=== PATIENT | female | born 1955 | race African-American/Black ===

== ENCOUNTER 2016-05-24 17:07 | Inpatient (IN) | payer OTHER ==
--- NOTE | 2016-05-24 17:11 | PDOC ---
History of Present Illness - History of Present Illness Initial Comments: 05/24/16 18:01 The patient is a 61 year old female with a past medical hx of HTN, diabetes who presents to the ED via EMS complaining of generalized weakness for the past hour. The patient reports she was on her way to the eye doctor when she felt very weak. She states she got out of the taxi and was at the incorrect address. She continued to feel weak and did not have money for a taxi so she reports she had someone call an ambulance for her. The patient reports she has never felt like this in the past. She has not eaten at all today and did not take any of her medications today. The patient denies any fever, chills, dysuria, SOB, cough The patient denies any nausea, vomiting, diarrhea, abdominal pain <Rachel Zavala - Last Filed: 05/24/16 21:00> <Karolyn Addison - Last Filed: 05/24/16 23:58> - General Stated Complaint: WEAKNESS/LETHARGY Past History <Rachel Zavala - Last Filed: 05/24/16 21:00> - Past Medical History Diabetes: Yes HTN: Yes - Psycho/Social/Smoking Cessation Hx Suicidal Ideation: No Smoking History: Never smoked Hx Alcohol Use: No Drug/Substance Use Hx: No Substance Use Type: None <Karolyn Addison - Last Filed: 05/24/16 23:58> - Past Medical History Allergies/Adverse Reactions: Allergies Allergy/AdvReac Type Severity Reaction Status Date / Time No Known Allergies Allergy Verified 05/24/16 17:16 Home Medications: Ambulatory Orders Aspirin [ASA -] 81 mg PO DAILY #20 tab.chew 01/14/16 Amlodipine Besylate [Norvasc -] 10 mg PO DAILY 05/24/16 Aspirin [ASA -] 81 mg PO DAILY 05/24/16 Atorvastatin Ca [Lipitor] 80 mg PO HS 05/24/16 Cephalexin Monohydrate [Keflex -] 500 mg PO Q6H #20 capsule 05/24/16 Gabapentin [Neurontin] 300 mg PO HS 05/24/16 Glipizide 5 mg PO DAILY 05/24/16 Insulin Glargine,Hum.rec.anlog [Lantus (nf)] 20 units SQ HS 05/24/16 Lisinopril [Prinivil] 10 mg PO DAILY 05/24/16 Metoprolol Succinate [Toprol Xl] 75 mg PO DAILY 05/24/16 Review of Systems - Review of Systems Able to Perform ROS?: Yes Comments:: 05/24/16 17:32 CONSTITUTIONAL: +Generalized weakness. Absent: fever, chills, diaphoresis, malaise, loss of appetite HEENT: Absent: rhinorrhea, nasal congestion, throat pain, throat swelling, difficulty swallowing, mouth swelling, ear pain, eye pain, visual Changes CARDIOVASCULAR: Absent: chest pain, syncope, palpitations, irregular heart rate, lightheadedness , peripheral edema RESPIRATORY: Absent: cough, shortness of breath, dyspnea with exertion, orthopnea, wheezing, stridor, hemoptysis GASTROINTESTINAL: Absent: abdominal pain, abdominal distension, nausea, vomiting, diarrhea, constipation, melena, hematochezia GENITOURINARY: Absent: dysuria, frequency, urgency, hesitancy, hematuria, flank pain, genital pain MUSCULOSKELETAL: Absent: joint swelling SKIN: Absent: rash, itching, pallor NEUROLOGIC: Absent: headache, focal weakness or paresthesias, dizziness, unsteady gait, seizure, mental status changes, bladder or bowel incontinence PSYCHIATRIC: Absent: anxiety, depression, suicidal or homicidal ideation, hallucinations. <Rachel Zavala - Last Filed: 05/24/16 21:00> *Physical Exam - Vital Signs Last Vital Signs Temp Pulse Resp BP Pulse Ox 98.1 F 81 18 163/82 99 05/24/16 17:16 05/24/16 17:16 05/24/16 17:16 05/24/16 17:16 05/24/16 17:16 - Physical Exam Comments: 05/24/16 17:33 GENERAL: +Appears lethargic. Well developed, well nourished. Awake and alert. No acute distress. HEENT: Normocephalic, atraumatic. PERRLA, EOMI. No conjunctival pallor. Sclera are non- icteric. Moist mucous membranes. Oropharynx is clear. NECK: Supple. Full ROM. No JVD. Carotid pulses 2+ and symmetric, without bruits. No thyromegaly. No lymphadenopathy. CARDIOVASCULAR: Regular rate and rhythm. No murmurs, rubs, or gallops. Distal pulses are 2+ and symmetric. PULMONARY: No evidence of respiratory distress. Lungs clear to auscultation bilaterally. No wheezing, rales or rhonchi. ABDOMINAL: Soft. Non-tender. Non-distended. No rebound or guarding. No organomegaly. Normoactive bowel sounds. MUSCULOSKELETAL Normal range of motion at all joints. No bony deformities or tenderness. No CVA tenderness. EXTREMITIES: +Chronic venous stasis, bilateral 1+ pitting edema. No cyanosis. No clubbing. No calf tenderness. SKIN: Warm and dry. Normal capillary refill. No rashes. No jaundice. NEUROLOGICAL: Alert, awake, appropriate. Lethargic when responding to questions. Cranial nerves 2-12 intact. No deficits to light touch and temperature in face, upper extremities and lower extremities. PSYCHIATRIC: Cooperative. Good eye contact. Appropriate mood and affect. <Rachel Zavala - Last Filed: 05/24/16 21:00> Heart Score/ECG Review - ECG Impressions Comment:: 05/24/16 21:00 NSR at a rate of 79 bpm OK interval 120 ms QRS duration 82 ms <Rachel Zavala - Last Filed: 05/24/16 21:00> ED Treatment Course - LABORATORY CBC & Chemistry Diagram: 05/24/16 17:35 05/24/16 17:35 - RADIOLOGY Radiograph Interpretation: 05/24/16 18:57 Chest X-Ray Single view AP portable chest Headache with altered mental status Comparison studies: None Trachea midline with normal heart size and no mediastinal widening No infiltrate, mass or effusion Impression: No infiltrate or edema in the lungs-no acute changes noted. Reported By: Leonard Saleh MD 05/24/16 1849 05/24/16 19:57 CT brain without contrast Clinical history: Lethargy Comparison studies: None Normal images on bone windows axial imaging through the paranasal sinuses and mastoids including the calvarium with no bony lesion Normal region of orbits and skull base noted Midline ventricular system with no shift or hydrocephalus No sulcal effacement or increased intracranial pressure Midline fourth ventricle with hypodensity in the periventricular white matter consistent with atherosclerotic small vessel change No sulcal effacement or increased intracranial pressure with no subdural or subarachnoid hemorrhage Focal area of hypodensity noted in the right anterior limb internal capsule consistent with a small area of hypodense infarction. Finding may be chronic. Similar area of hypodensity noted left anterior limb internal capsule. Findings likely outbound telemarketing representative of age indeterminate/likely chronic lacunar infarcts. Impression: CT imaging completed with no evidence of mass, hemorrhage or acute vascular territory infarction. No definite acute changes in the brain. Reported By: Leonard Saleh MD 05/24/16 193 <Rachel Zavala - Last Filed: 05/24/16 21:00> - LABORATORY CBC & Chemistry Diagram: 05/24/16 17:35 05/24/16 17:35 <Karolyn Addison - Last Filed: 05/24/16 23:58> Medical Decision Making - Medical Decision Making 05/24/16 17:55 61-year-old female was brought in by ambulance for weakness and lethargy History of present illness-she took a cab for an eye appointment, but when they arrived there was no eye doctor's office there. Apparently, she didn't have the money for the return Trip home. So she sat there and stated she started to feel weak and dizzy, and 911 was called. Patient is a poor historian. She has chronic lower extremity weakness and needs a walker to ambulate. I asked her how she expected to ambulate to the doctor's office because she did not bring her walker with her. She said she usually manages. In reviewing her old charts, she is only been here once previously in January 2016 for blood pressure problem. 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 She had been on Pamelor at one time and I suspect there are some underlying psychiatric chronic cognitive issues. The patient states she had not eaten today and has not taken any of his her medications. Was given a turkey sandwich to eat BGM was >200 Patient has a holosystolic murmur, chronic venous stasis changes and some plaster of Erna edema. Lungs are clear. She has a protuberant but soft abdomen. She has regular rate and rhythm and her EKG shows normal sinus rhythm at 79 bpm, with minimal criteria for LVH 05/24/16 23:54 ct scan brain no acute intracranial pathology renal insufficiency with cr=2.1 glucose >200 negative toxicology negative troponin cbc unremarkable ekg -no evidence of acute ischemia pt has UTI and this may account for her confusion-antibiotics started -due to pt's persistent lethargy she was admitted to med/surg <Karolyn Addison - Last Filed: 05/24/16 23:58> *DC/Admit/Observation/Transfer - Attestations Scribe Attestion: 05/24/16 17:31 Documentation prepared by Rachel Zavala, acting as medical management trainer for Karolyn Addison MD/DO. <Rachel Zavala - Last Filed: 05/24/16 21:00> - Discharge Dispostion Admit: Yes <Karolyn Addison - Last Filed: 05/24/16 23:58> Diagnosis at time of Disposition: Lethargy, Renal insufficiency UTI (urinary tract infection) Qualifiers: Urinary tract infection type: site unspecified Hematuria presence: without hematuria Qualified Code(s): N39.0 - Urinary tract infection, site not specified Diabetes Qualifiers: Diabetes mellitus type: type 1 Diabetes mellitus complication status: with hyperglycemia Qualified Code(s): E10.65 - Type 1 diabetes mellitus with hyperglycemia - Prescriptions Prescriptions: Cephalexin Monohydrate [Keflex -] 500 mg PO Q6H #20 capsule - Referrals Referrals: Ed Cohen MD [Primary Care Provider] -
[2016-05-24 17:58] VITALS: BMI 30.2
[2016-05-24 17:58] LABS: BASOPHIL 0.8 % (0-2.0); EOSINOPHIL 0.6 % (0-4.5); MCH 29.1 pg (25.7-33.7); MCHC 33.4 g/dl (32.0-36.0); MEAN PLT VOLUME 8.6 fl (7.5-11.1); NEUTROPHILS 79.2 % (42.8-82.8); PLATELET COUNT 393 K/MM3 (134-434); RDW 13.5 % (11.6-15.6); WHITE BLOOD COUNT 9.6 K/mm3 (4.0-10.0)
[2016-05-24 18:19] LABS: ALBUMIN 2.4 g/dl (3.4-5.0); ANION GAP 10 (8-16); BILIRUBIN,TOTAL 0.2 mg/dL (0.2-1.0); CALCIUM 8.8 mg/dL (8.5-10.1); CO2 23 mmol/L (21-32); COCKROFT - GAULT 37.1195; CREATININE 2.1 mg/dL (0.55-1.02); GLUCOSE,RANDOM 207 mg/dL (74-106); SGOT/AST 14 U/L (15-37); SGPT/ALT 22 U/L (12-78); TOT PROT 5.9 g/dl (6.4-8.2)
[2016-05-24 18:21] LABS: ALK PHOS 99 U/L (45-117); TROPONIN I < 0.02 ng/ml (0.00-0.05)
[2016-05-24 19:16] LABS: URINE APPEARANCE TURBID; URINE BILIRUBIN NEGATIVE (NEGATIVE); URINE COLOR AMBER; URINE GLUCOSE (UA) 2+ (NEGATIVE); URINE KETONE NEGATIVE (NEGATIVE); URINE NITRITE NEGATIVE (NEGATIVE); URINE UROBILINOGEN NEGATIVE E.U./dl (0.2-1.0)
[2016-05-24 19:29] LABS: URINE MARIJUANA THC NEGATIVE ng/ml (CUTOFF=50)
[2016-05-24 19:46] LABS: URINE BLOOD 1+ (NEGATIVE); URINE LEUK ESTERASE 2+ (NEGATIVE); URINE PROTEIN 3+ (NEGATIVE)
[2016-05-24 19:49] LABS: URINE BACTERIA MANY /hpf (NONE SEEN); URINE MUCUS MODERATE; URINE RBC 19 /hpf (0-3); URINE WBC 1201 /hpf (3-5)
[2016-05-24] MEDS ORDERED: LEVOFLOXACIN 500 MG IVPB 100 ML IVPB ONE ×2 (20:06→20:11)
[2016-05-24] MEDS ORDERED: SODIUM CHLORIDE 500 ML IV STA (20:06)
[2016-05-25] MEDS ORDERED: ACETAMINOPHEN 325 MG TABLET (FP) PO PRN (00:06)
[2016-05-25] MEDS ORDERED: CEFTRIAXONE 1 GM in DEXTROSE 5%-WATER - 50 ML IVPB SCH (00:15)
[2016-05-25] MEDS ORDERED: SODIUM CHLORIDE 1,000 ML IV SCH (00:15)
--- NOTE | 2016-05-25 00:15 | HP ---
CHIEF COMPLAINT: Altered Mental Status PCP: Dustin Cohen HISTORY OF PRESENT ILLNESS: Patient is a 61 year old female with PMH of DM, HTN, Possible CVA who presents to ED earlier today with altered mental status. Patient called a cab to take her to her ophthalmology appointment but apparently gave the cabin agent the wrong address. She was noted to be confused and became nonresponsive to questions so 911 was called. Upon arrival in ED, patient knows the date, her name and location but is unsure about how she became lost earlier in the day. She states she has had burning urination & increased frequency for last week. She also has had chronic constipation for some time. Denies fever, chills, SOB, CP, headache or diarrhea. Discussed case with daughter who states that mother's cognition has rapidly declined since she had a CVA 1-2 months ago. She was treated at [facility] but daughter does not have any details about the stroke or whether tPA was used. She just knows her mother has had increased difficulty with memory & taking care of herself. Her mother's mental status today is apparently not much different than it has been over the last month. ER course was notable for: (1)UA: 2+LE w/ 1200 WBC UTox: negative for all substances (2)Head CT (-) for acute pathology (3)Discussed patient's PMH/baseline mental status with daughter Recent Travel: NONE NOTED PAST MEDICAL HISTORY: ABOVE PAST SURGICAL HISTORY: PATIENT IS UNSURE Social History: Smoking:NONE NOTED Alcohol:NONE NOTED Drugs:NONE NOTED Family History: noncontributory, patient is a poor historian Allergies No Known Allergies Allergy (Verified 05/24/16 17:16) HOME MEDICATIONS: Home Medications Medication Instructions Recorded Aspirin [ASA -] 81 mg PO DAILY #20 tab.chew 01/14/16 Amlodipine Besylate [Norvasc -] 10 mg PO DAILY 05/24/16 Aspirin [ASA -] 81 mg PO DAILY 05/24/16 Atorvastatin Ca [Lipitor] 80 mg PO HS 05/24/16 Cephalexin Monohydrate [Keflex -] 500 mg PO Q6H #20 capsule 05/24/16 Gabapentin [Neurontin] 300 mg PO HS 05/24/16 Glipizide 5 mg PO DAILY 05/24/16 Insulin Glargine,Hum.rec.anlog 20 units SQ HS 05/24/16 [Lantus (nf)] Lisinopril [Prinivil] 10 mg PO DAILY 05/24/16 Metoprolol Succinate [Toprol Xl] 75 mg PO DAILY 05/24/16 REVIEW OF SYSTEMS CONSTITUTIONAL: Absent: fever, chills, diaphoresis, generalized weakness, malaise, loss of appetite, weight change HEENT: Absent: rhinorrhea, nasal congestion, throat pain, throat swelling, difficulty swallowing, mouth swelling, ear pain, eye pain, visual changes CARDIOVASCULAR: Absent: chest pain, syncope, palpitations, irregular heart rate, lightheadedness , peripheral edema RESPIRATORY: Absent: cough, shortness of breath, dyspnea with exertion, orthopnea, wheezing, stridor, hemoptysis GASTROINTESTINAL: (+)constipation, Absent: abdominal pain, abdominal distension, nausea, vomiting, diarrhea, melena , hematochezia GENITOURINARY: (+)dysuria, frequency, urgency, Absent: hesitancy, hematuria, flank pain, genital pain MUSCULOSKELETAL: Absent: myalgia, arthralgia, joint swelling, back pain, neck pain SKIN: Absent: rash, itching, pallor HEMATOLOGIC/IMMUNOLOGIC: Absent: easy bleeding, easy bruising, lymphadenopathy, frequent infections ENDOCRINE: Absent: unexplained weight gain, unexplained weight loss, heat intolerance, cold intolerance NEUROLOGIC: (+)mental status changes, Absent: headache, focal weakness or paresthesias, dizziness, unsteady gait, seizure, bladder or bowel incontinence PSYCHIATRIC: Absent: anxiety, depression, suicidal or homicidal ideation, hallucinations. PHYSICAL EXAMINATION GENERAL: Awake, alert & oriented to person, place and date. Confused about how she got lost today or why she felt so lethargic. HEENT:Atraumatic, EOMI, PERRLA, No lymphadneopathy, dry membranes LUNGS: Breath sounds equal, clear to auscultation bilaterally. No wheezes, and no crackles. No accessory muscle use. HEART: Regular rate and rhythm, normal S1 and S2 without murmur, rub or gallop. ABDOMEN: Soft, nontender, not distended, normoactive bowel sounds MUSCULOSKELETAL: Normal range of motion at all joints. No bony deformities or tenderness. No CVA tenderness. UPPER EXTREMITIES: 2+ pulses, warm, well-perfused. No cyanosis. No clubbing. No peripheral edema. LOWER EXTREMITIES: 2+ pulses, warm, well-perfused. No calf tenderness. No peripheral edema. NEUROLOGICAL: Cranial nerves II-XII intact. Normal speech. Gait not observed. PSYCHIATRIC: Cooperative. Good eye contact. Appropriate mood and affect. SKIN: Warm, dry, normal turgor, no rashes or lesions noted, normal capillary refill. ASSESSMENT/PLAN: 61 year old female with PMH of DM, HTN, Possible CVA who presents to ED earlier today with altered mental status. #Acute Renal Failure, likely secondary to Acute UTI -Creatinine 2.1, unsure of baseline -trend kidney function in AM -Ceftriaxone started -IVF NS@75cc/hr -Urine culture sent & pending -if kidney function not improving by AM, may need Renal/Bladder US #Declining functional baseline status -s/p stroke 2 months ago -daughter states patient follows up with neurologist, but is unsure of name ( need to contact [facility] in AM for records) -neuro checks -PT eval requested -continue home meds: ASA 81mg, Lipitor 80mg HS -psychiatric social worker supervisor requested (patient does not have an aide at home & is having increased difficulty with taking medications/making it to appointments) #Constipation, chronic -started on bowel regimen: colace, miralax -may be contributing to some degree of urinary stasis exacerbating risk of developing a UTI #Diabetes -ISS -BGM ACHS -holding oral hypoglycemics -restarted home dose Gabapentin #HTN -restarted home meds: Lisinopril 10mg PO daily, Norvasc 10mg PO daily, Metoprolol succinate 75mg PO daily Prophylaxis -SCD's, expect a short stay (can start Heparin tomorrow if not discharged) -No PPI indicated -Diabetic diet, IVF NS@75cc/hr, will monitor electrolytes Visit type - Emergency Visit Emergency Visit: Yes ED Registration Date: 05/24/16 Care time: The patient presented to the Emergency Department on the above date and was hospitalized for further evaluation of their emergent condition. - New Patient This patient is new to me today: Yes Date on this admission: 05/25/16 - Critical Care Critical Care patient: No
--- NOTE | 2016-05-25 00:22 | MSN ---
Admitting History and Physical - Admission Chief Complaint: AMS History of Present Illness: Pt is a 61 yo F with a PMHx of HTN and DM who presents to the ED with lethargy and altered mentation. The pt states she was supposed to have an optometry appt today but took a cab to the wrong address. During the cab ride the pt felt weak , which continued after arriving at the incorrect address. She did not have enough money for a cab ride back home so she had someone call an ambulance to pick her up. Pt has not eaten today and has not taken any of her meds. She admits to increased frequency with urination, pain with urination, and a feeling of urgency post void. She also admits to recent constipation. Denies fever, CP, SOB, or headache. Of note, the daughter reports that the pt had a stroke ~2mos ago for which she was treated at [facility]. She then subsequently had a TIA ~3wks ago. The pt has been following up with neurology outpatient. The daughter states the pt's cognition has been slowed since the stroke. 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 Cardiovascular: Yes: HTN Endocrine: Yes: Diabetes Mellitus - Smoking History Smoking history: Never smoked Have you smoked in the past 12 months: No - Alcohol/Substance Use Hx Alcohol Use: No Home Medications - Allergies Allergies/Adverse Reactions: Allergies Allergy/AdvReac Type Severity Reaction Status Date / Time No Known Allergies Allergy Verified 05/24/16 17:16 - Home Medications Home Medications: Ambulatory Orders Aspirin [ASA -] 81 mg PO DAILY #20 tab.chew 01/14/16 Amlodipine Besylate [Norvasc -] 10 mg PO DAILY 05/24/16 Aspirin [ASA -] 81 mg PO DAILY 05/24/16 Atorvastatin Ca [Lipitor] 80 mg PO HS 05/24/16 Cephalexin Monohydrate [Keflex -] 500 mg PO Q6H #20 capsule 05/24/16 Gabapentin [Neurontin] 300 mg PO HS 05/24/16 Glipizide 5 mg PO DAILY 05/24/16 Insulin Glargine,Hum.rec.anlog [Lantus (nf)] 20 units SQ HS 05/24/16 Lisinopril [Prinivil] 10 mg PO DAILY 05/24/16 Metoprolol Succinate [Toprol Xl] 75 mg PO DAILY 05/24/16 Review of Systems - Review of Systems Constitutional: reports: Lethargy, Weakness. denies: Chills, Fever Eyes: reports: No Symptoms HENT: reports: No Symptoms Neck: reports: No Symptoms Cardiovascular: denies: Chest Pain, Shortness of Breath Respiratory: denies: Cough, SOB Gastrointestinal: reports: Constipation Genitourinary: reports: Dysuria, Frequency, Urgency Musculoskeletal: reports: No Symptoms Integumentary: reports: No Symptoms Neurological: reports: Change in LOC Endocrine: reports: No Symptoms Hematology/Lymphatic: reports: No Symptoms Psychiatric: reports: No Symptoms Physical Examination Vital Signs: Vital Signs Period Temp Pulse Resp BP Sys/Villarreal Pulse Ox Last 24 Hr 98.1 F 81 18 163/82 99 Constitutional: Yes: Mild Distress Eyes: Yes: WNL HENT: Yes: WNL Neck: Yes: WNL Cardiovascular: Yes: Regular Rate and Rhythm, S1, S2 Respiratory: Yes: Regular, CTA Bilaterally Gastrointestinal: Yes: Abdomen, Obese, Tenderness Breast(s): Yes: WNL Musculoskeletal: Yes: WNL Extremities: Yes: Other (Chronic venous stasis skin changes) Edema: Yes Edema: LLE: Trace, RLE: Trace Peripheral Pulses WNL: Yes Integumentary: Yes: Venous Stasis Changes (BL LE) Neurological: Yes: Alert, Oriented, Lethargy Psychiatric: Yes: Alert, Oriented (AAOx3) Labs: CBC WBC 9.6 K/mm3 (4.0-10.0) 05/24/16 17:35 RBC 3.94 M/mm3 (3.60-5.2) 05/24/16 17:35 Hgb 11.4 GM/dL (10.7-15.3) 05/24/16 17:35 Hct 34.2 % (32.4-45.2) 05/24/16 17:35 MCV 87.0 fl (80-96) 05/24/16 17:35 MCHC 33.4 g/dl (32.0-36.0) 05/24/16 17:35 RDW 13.5 % (11.6-15.6) 05/24/16 17:35 Plt Count 393 K/MM3 (134-434) 05/24/16 17:35 MPV 8.6 fl (7.5-11.1) 05/24/16 17:35 Neutrophils % 79.2 % (42.8-82.8) 05/24/16 17:35 Lymphocytes % 13.9 % (8-40) 05/24/16 17:35 Monocytes % 5.5 % (3.8-10.2) 05/24/16 17:35 Eosinophils % 0.6 % (0-4.5) 05/24/16 17:35 Basophils % 0.8 % (0-2.0) 05/24/16 17:35 CMP Sodium 139 mmol/L (136-145) 05/24/16 17:35 Potassium 4.4 mmol/L (3.5-5.1) 05/24/16 17:35 Chloride 106 mmol/L (98-107) 05/24/16 17:35 Carbon Dioxide 23 mmol/L (21-32) 05/24/16 17:35 Anion Gap 10 (8-16) 05/24/16 17:35 BUN 29 mg/dL (7-18) H 05/24/16 17:35 Creatinine 2.1 mg/dL (0.55-1.02) H 05/24/16 17:35 Creat Clearance w eGFR 24.02 (>60) 05/24/16 17:35 Random Glucose 207 mg/dL (74-106) H 05/24/16 17:35 Calcium 8.8 mg/dL (8.5-10.1) 05/24/16 17:35 Total Bilirubin 0.2 mg/dL (0.2-1.0) 05/24/16 17:35 AST 14 U/L (15-37) L 05/24/16 17:35 ALT 22 U/L (12-78) 05/24/16 17:35 Alkaline Phosphatase 99 U/L (45-117) 05/24/16 17:35 Creatine Kinase 79 IU/L (26-192) 05/24/16 17:35 Troponin I < 0.02 ng/ml (0.00-0.05) 05/24/16 17:35 Total Protein 5.9 g/dl (6.4-8.2) L 05/24/16 17:35 Albumin 2.4 g/dl (3.4-5.0) L 05/24/16 17:35 Urine Test Results Urine Color Shara 05/24/16 17:45 Urine Appearance Turbid 05/24/16 17:45 Urine pH 5.0 (5.0-8.0) 05/24/16 17:45 Ur Specific [place] 1.023 (1.001-1.035) 05/24/16 17:45 Urine Protein 3+ (NEGATIVE) H 05/24/16 17:45 Urine Glucose (UA) 2+ (NEGATIVE) H 05/24/16 17:45 Urine Ketones Negative (NEGATIVE) 05/24/16 17:45 Urine Blood 1+ (NEGATIVE) H 05/24/16 17:45 Urine Nitrite Negative (NEGATIVE) 05/24/16 17:45 Urine Bilirubin Negative (NEGATIVE) 05/24/16 17:45 Ur Leukocyte Esterase 2+ (NEGATIVE) H 05/24/16 17:45 Urine RBC 19 /hpf (0-3) 05/24/16 17:45 Urine WBC 1201 /hpf (3-5) 05/24/16 17:45 Ur Epithelial Cells Few /hpf (FEW) 05/24/16 17:45 Urine Bacteria Many /hpf (NONE SEEN) 05/24/16 17:45 Urine Mucus Moderate 05/24/16 17:45 UTox: Negative Imaging - Results Chest X-ray: Report Reviewed (No acute pathology (infiltrate, effusion, edema)) , Image Reviewed Cat Scan: Report Reviewed (No acute pathology (hemorrhage, mass, infarction)), Image Reviewed EKG: Report Reviewed, Image Reviewed (NSR @79bpm with nml TN interval and QRS duration) Problem List - Problems (1) Diabetes (2) Lethargy (3) Renal insufficiency (4) UTI (urinary tract infection) (5) HBP (high blood pressure) Assessment/Plan Pt is a 61 yo F with a PMHx of HTN and DM who presents to the ED via EMS with generalized weakness and AMS. Pt was found to has abnormal UA with signs and clinical symptoms of UTI. 1. AMS 2/2 to uncomplicated UTI -Improved mental status since presentation -Pt did not meet SIRS criteria -Abnormal UA with elevated WBCs, +LE, and +bacteria -Received Levaquin 500mg IVPB x1 in ED -Start Rocephin 1gm IV daily -? Renal/Bladder US -Urine Cx pending 2. ESTELLA -BUN/Cr of 29/2.1 -Do not know pt's baseline Cr -Pt has risk factors for CKD (HTN, DM, ethnicity) -Start IVF NS @75cc/hr -Repeat BMP in AM 3. Hx of stroke and TIA -Head CT showed no signs of acute infarction, but +hypodense areas in BL anterior limb of internal capsule likely representing age indeterminate/chronic lacunar infarcts, and +hypodense area in the periventricular area of 4th ventricle consistent with atherosclerotic disease -Neuro consult pending -Continue ASA 81mg PO daily -Continue Lipitor 80mg PO HS 4. Constipation -Admits to recent onset -Most likely causing increased post void residual volume and increasing risk for development of cystitis -Start Colace and Miralax 5. HTN -Will continue home meds of Lisinopril 10mg PO daily, Norvasc 10mg PO daily, and Metoprolol succinate 75mg PO daily 6. DM -BGM -SSI 7. FEN -Received 500cc NS in ED. Start 1000cc NS @75cc/hr -BMP WNL. Continue to monitor and correct any electrolyte abnormalities -Diabetic diet 8. DVT ppx -SCDs 9. Dispo -Pt being placed in observation Miller Goldberg, MS3
[2016-05-25] MEDS ORDERED: CEFTRIAXONE 50 ML ONE (00:33)
[2016-05-25] MEDS ORDERED: cefTRIAXone 1 GM/50 ML BAG (PRE-DOCKED) IVPB SCH (00:45)
[2016-05-25] MEDS: METOPROLOL SUCCINATE 50 MG TAB.SR.24H (FP) PO SCH ×2 (03:57→03:59)
[2016-05-25] MEDS: LISINOPRIL 10 MG TABLET (FP) PO SCH ×2 (03:58→10:20)
[2016-05-25] MEDS: amLODIPine BESYLATE 10 MG TABLET (FP) PO SCH (03:59)
--- NOTE | 2016-05-25 05:45 | PN ---
Teaching Attending Note Name of Resident: Edu Scott ATTENDING PHYSICIAN STATEMENT I saw and evaluated the patient. I reviewed the resident's note and discussed the case with the resident. I agree with the resident's findings and plan as documented. SUBJECTIVE: 61 year old female that was brought by EMS due to confusion and lethargy x 1 day. Other complaints include urinary frequency . History of recent hospitalization for CVA that lead to decline in functional and cognitive status ( as per family member ) PMH HTN DM CVA PSx No known history of cancer ALL NKDA Social HX Denies Smoking Denies alcohol use Denies drug abuse OBJECTIVE: Vital Signs Temperature 98.2 F 05/25/16 01:53 Pulse Rate 89 05/25/16 03:30 Respiratory Rate 18 05/25/16 03:54 Blood Pressure 183/92 05/25/16 03:54 O2 Sat by Pulse Oximetry (%) 97 05/25/16 01:53 GENERAL: Awake, alert & oriented to person, place and date. Confused about how she got lost today or why she felt so lethargic. HEENT:Atraumatic, EOMI, PERRLA, No lymphadneopathy, dry membranes LUNGS: Breath sounds equal, clear to auscultation bilaterally. No wheezes, and no crackles. No accessory muscle use. HEART: Regular rate and rhythm, normal S1 and S2 without murmur, rub or gallop. ABDOMEN: Soft, nontender, not distended, normoactive bowel sounds MUSCULOSKELETAL: Normal range of motion at all joints. No bony deformities or tenderness. No CVA tenderness. UPPER EXTREMITIES: 2+ pulses, warm, well-perfused. No cyanosis. No clubbing. No peripheral edema. LOWER EXTREMITIES: 2+ pulses, warm, well-perfused. No calf tenderness. No peripheral edema. NEUROLOGICAL: Cranial nerves II-XII intact. Normal speech. Gait not observed. PSYCHIATRIC: Cooperative. Good eye contact. Appropriate mood and affect. SKIN: Warm, dry, normal turgor, no rashes or lesions noted, normal capillary refill. Abnormal Lab Results 05/24/16 05/24/16 17:35 17:45 BUN 29 H Creatinine 2.1 H Random Glucose 207 H AST 14 L Total Protein 5.9 L Albumin 2.4 L Urine Protein 3+ H Urine Glucose (UA) 2+ H Urine Blood 1+ H Ur Leukocyte Esterase 2+ H ASSESSMENT AND PLAN: 1. Acute encephalopathy - likely multifactorial, recent CVA with now metabolic component ( ARF , UTI) - treat underlying cause - ASA 2. UTI - acute - IV Rocephin -follow cultures 3. ARF - likely secondary to dehydration and UTI - IVF -monitor BMP 4. Uncontrolled HTN - reinstate home meds - PRN lopressor for SBP >165 DBP >90 5. DM - sliding scale while hospitalized 6. Constipation - senna 7. DVT PPX - heparin SC Based on severity of patients symptoms , acute change in mental status , acute renal insufficiency and acute infection , need for neurological monitoring ,IVF hydration and IV antibiotics this patient meets medical necessity for the first midnight of hospitalization that has already passed while in the emergency department . If no improvement noted today and further inpatient services are needed will admit as an inpatient.
[2016-05-25] MEDS ORDERED: SENNOSIDES 8.6MG TABLET (FP) PO STA (06:16)
[2016-05-25] MEDS: DOCUSATE SODIUM 100 MG CAPSULE (FP) PO SCH ×3 (06:32→22:13)
[2016-05-25] MEDS: INSULIN SLIDING SCALE (NOVOLOG) 1 VIAL SQ SCH ×4 (06:32→22:34)
[2016-05-25 08:44] LABS: ALBUMIN 2.1 g/dl (3.4-5.0); BASOPHIL 0.4 % (0-2.0); EOSINOPHIL 1.8 % (0-4.5); MCH 29.3 pg (25.7-33.7); MCHC 34.4 g/dl (32.0-36.0); MEAN CELL VOLUME 85.1 fl (80-96); MEAN PLT VOLUME 8.3 fl (7.5-11.1); NEUTROPHILS 68.2 % (42.8-82.8); PLATELET COUNT 314 K/MM3 (134-434); RDW 13.1 % (11.6-15.6)
[2016-05-25 08:49] LABS: BILIRUBIN,TOTAL 0.1 mg/dL (0.2-1.0); COCKROFT - GAULT 54.417; CREATININE 1.6 mg/dL (0.55-1.02); TOT PROT 5.3 g/dl (6.4-8.2)
[2016-05-25] MEDS ORDERED: PT OWN MED DRAWER 7, Y5N ONE (10:17)
[2016-05-25] MEDS: ASPIRIN 81 MG CHEWABLE TABLETS PO SCH (10:19)
[2016-05-25] MEDS: HEPARIN NA (PORCINE) 5,000 UNITS/ML 1ML VIAL SQ SCH ×2 (10:20→22:08)
--- NOTE | 2016-05-25 10:34 | EKG ---
Test Reason : Blood Pressure : / mmHG Vent. Rate : 079 BPM Atrial Rate : 079 BPM P-R Int : 120 ms QRS Dur : 082 ms QT Int : 368 ms P-R-T Axes : -12 -21 045 degrees QTc Int : 421 ms NORMAL SINUS RHYTHM MINIMAL VOLTAGE CRITERIA FOR LVH, MAY BE NORMAL VARIANT BORDERLINE ECG NO PREVIOUS ECGS AVAILABLE Confirmed by GARO IRVING MD ([id number]) on 05/25/2016 10:33:56 AM Referred By: Confirmed By:GARO IRVING MD
[2016-05-25] MEDS: cefTRIAXone 1 GM/50 ML BAG (PRE-DOCKED) IVPB SCH (14:36)
[2016-05-25] MEDS: POLYETHYLENE GLYCOL 3350 119 GM BTL PO SCH (14:39)
--- NOTE | 2016-05-25 16:19 | PN ---
Addendum entered and electronically signed by Miya Morales RES 05/25/16 17: 06: Outpatient Prescribers: April Zhong. Arnulfo Fair Original Note: Physical Exam: SUBJECTIVE: Patient seen and examined Patient resting in bed NAD. no acute events. afebrile and hemodynamically stable. aaox3. Feels well. Denies weakness or paresthesia. dysuria resolved. Denies chest pain, sob, cough, flank pain, abd pain, diarrhea. OBJECTIVE: Vital Signs Period Temp Pulse Resp BP Sys/Villarreal Pulse Ox Last 24 Hr 98.2 F-99.2 F 62-89 16-20 143-205/68-100 97-98 GENERAL: The patient is awake, alert, and fully oriented, in no acute distress. HEAD: Normal with no signs of trauma. EYES: PERRL, extraocular movements intact, sclera anicteric, conjunctiva clear. No ptosis. ENT: moist mucous membranes. NECK: Trachea midline, full range of motion, supple. LUNGS: Breath sounds equal, clear to auscultation bilaterally HEART: Regular rate and rhythm, S1, S2 ABDOMEN: Soft, nontender, nondistended, normoactive bowel sounds, EXTREMITIES: 2+ pulses, warm, well-perfused, no edema. NEUROLOGICAL: Cranial nerves II through XII intact. Normal speech, gait not observed. upper and lower extremities strength 5/5 b/l. brachial reflexes 1+ b/l , patellar reflexes 1+ b/l, no paresthesia PSYCH: Normal mood, normal affect. SKIN: Warm, dry Laboratory Results - last 24 hr 05/25/16 05/25/16 05/25/16 05:50 07:45 07:45 WBC 9.0 RBC 3.57 L Hgb 10.5 L Hct 30.4 L MCV 85.1 MCHC 34.4 RDW 13.1 Plt Count 314 D MPV 8.3 Neutrophils % 68.2 Lymphocytes % 23.0 D Monocytes % 6.6 Eosinophils % 1.8 D Basophils % 0.4 Sodium 146 H Potassium 3.9 Chloride 113 H Carbon Dioxide 26 Anion Gap 7 L BUN 24 H Creatinine 1.6 H D Creat Clearance w eGFR 32.88 POC Glucometer 165 Random Glucose 151 H D Calcium 9.0 Total Bilirubin 0.1 L D AST 10 L D ALT 17 D Alkaline Phosphatase 84 Total Protein 5.3 L Albumin 2.1 L 05/25/16 12:15 WBC RBC Hgb Hct MCV MCHC RDW Plt Count MPV Neutrophils % Lymphocytes % Monocytes % Eosinophils % Basophils % Sodium Potassium Chloride Carbon Dioxide Anion Gap BUN Creatinine Creat Clearance w eGFR POC Glucometer 171 Random Glucose Calcium Total Bilirubin AST ALT Alkaline Phosphatase Total Protein Albumin Active Medications Generic Name Dose Route Start Last Admin Trade Name Freq PRN Reason Stop Dose Admin Acetaminophen 650 mg 05/25/16 00:06 Tylenol - PO Q4H PRN FEVER OR PAIN Amlodipine Besylate 10 mg 05/25/16 03:45 05/25/16 03:59 Norvasc - PO 10 mg DAILY PATRIC Administration Aspirin 81 mg 05/25/16 10:00 05/25/16 10:19 Asa - PO 81 mg DAILY PATRIC Administration Atorvastatin Calcium 80 mg 05/25/16 22:00 Lipitor - PO HS PATRIC Ceftriaxone Sodium 1 gm 05/25/16 14:00 05/25/16 14:36 Rocephin 1gm Ivpb (Pre-Docked) IVPB 1 gm DAILY PATRIC Administration Docusate Sodium 100 mg 05/25/16 06:00 05/25/16 14:33 Colace - PO 100 mg TID PATRIC Administration Gabapentin 300 mg 05/25/16 22:00 Neurontin - PO HS PATRIC Heparin Sodium (Porcine) 5,000 unit 05/25/16 10:00 05/25/16 10:20 Heparin - SQ 5,000 unit BID PATRIC Administration Insulin Aspart 1 vial 05/25/16 07:00 05/25/16 12:19 Novolog Vial Sliding Scale - SQ 2 units ACHS PATRIC Administration Protocol Lisinopril 10 mg 05/25/16 03:45 05/25/16 10:20 Prinivil PO 10 mg DAILY PATRIC Administration Metoprolol Succinate 75 mg 05/25/16 03:45 05/25/16 03:59 Toprol Xl - PO 75 mg DAILY PATRIC Administration Polyethylene Glycol 17 gm 05/25/16 10:00 05/25/16 14:39 Miralax (For Daily Use) - PO 17 gm DAILY PATRIC Administration ASSESSMENT/PLAN: This is a 61 yo F with PMH of DM, HTN, CVA vs tia 2 mo ago that presented with RUE weakness, who presents to ED with altered mental status and UTI. Altered mental status -likley metabolic, in setting of acute UTI and recent TIA/CVA -now at baseline -CT head no acute path -will obtain [facility] records -already on asa 81 and Lipitor 80 hs -PT eval -social media senior associate requested as patient does not have an aide and has had declining mentation ESTELLA vs CKD -Creatinine 2.1 improved to 1.8 with IVF, unknown baseline -suspect prerenal and chronic diabetic nephropathy component -will attempt to contact PCP for baseline -trend creat UTI -Ceftriaxone -IVF -Urine culture pending Constipation, chronic -colace, miralax -known to be associated with UTI NIDDM2 -sliding scale -BGM ACHS -Gabapentin HTN -Norvasc 10mg PO daily, Metoprolol succinate 75mg PO daily -hold Lisinopril 10mg PO daily FEN: half normal S@75 mild hypernatremia PPI, scd Diabetic diet Problem List - Problems (1) Diabetes Code(s): E11.9 - TYPE 2 DIABETES MELLITUS WITHOUT COMPLICATIONS Qualifiers: Diabetes mellitus type: type 1 Diabetes mellitus complication status: with hyperglycemia Qualified Code(s): E10.65 - Type 1 diabetes mellitus with hyperglycemia (2) Lethargy Code(s): R53.83 - OTHER FATIGUE (3) Renal insufficiency Code(s): N28.9 - DISORDER OF KIDNEY AND URETER, UNSPECIFIED (4) UTI (urinary tract infection) Code(s): N39.0 - URINARY TRACT INFECTION, SITE NOT SPECIFIED Qualifiers: Urinary tract infection type: site unspecified Hematuria presence: without hematuria Qualified Code(s): N39.0 - Urinary tract infection, site not specified (5) HBP (high blood pressure) Code(s): I10 - ESSENTIAL (PRIMARY) HYPERTENSION Qualifiers: Hypertension type: essential hypertension Qualified Code(s): I10 - Essential (primary) hypertension Visit type - Emergency Visit Emergency Visit: Yes ED Registration Date: 05/24/16 Care time: The patient presented to the Emergency Department on the above date and was hospitalized for further evaluation of their emergent condition. - New Patient This patient is new to me today: Yes Date on this admission: 05/25/16 - Critical Care Critical Care patient: No - Discharge Referral Referred to [facility] Med P.C.: No
[2016-05-25] MEDS ORDERED: SODIUM CHLORIDE 0.45% 1,000 ML IV SCH (16:45)
[2016-05-25] MEDS ORDERED: METOPROLOL SUCCINATE 25 MG TAB.SR.24H (FP) PO SCH (17:15)
--- NOTE | 2016-05-25 17:46 | PN ---
Teaching Attending Note Name of Resident: Miya Morales ATTENDING PHYSICIAN STATEMENT I saw and evaluated the patient. I reviewed the resident's note and discussed the case with the resident. I agree with the resident's findings and plan as documented. SUBJECTIVE: no pain, has no fever or chills, thinks she was confused yesterday, and now at her base line . reports frequency in urination OBJECTIVE: NAd , awake a, alert and oriented x3 CV: RRR Lungs : CTAb Abd : soft, ND , TTP in suprapubic area , no rebound tenderness or guarding Ext : no edema Neuro : EOMI, round equal pupils , reactive to light , no facial droop, tongue at mid line , uvula at mid line , nl facial sensation . Strength 5/5 in upper and lower ext proximally and distally except L hip flexion at 4/5 . nl sensation to light touch. reflexes 2+ biceps and 1+ knee jerk b/l . ASSESSMENT AND PLAN: 61 y/o lady with h/o HTN, HLP, recent stroke ( in , at [facility] ) , DM who presented with AMS and was found to have a UTI 1- complicated UTI: - follow urine cx - cont ceftriaxone day 2 of abx 2- AMS , Metabolic encephalopathy due to infection . now at base line . although had recent stroke , now has non focal exam. - try to obtain records from [facility] ( request sent ) - cont secondary prophylaxis fro stroke , asa , lipitor 3- ESTELLA : not clear of her base line . cr improved with IVF - cont IVF and switch to 1/2 NS due to hypernatremia - contto try to reach family , as PCP is not known. otain base line cr frm OSH 4- DM : SSI 5- DVT PX PT will try to confirm meds with pharmacy and family
[2016-05-25] MEDS: PANTOPRAZOLE 20 MG TABLET (FP) PO SCH (22:08)
[2016-05-25] MEDS: ATORVASTATIN CA 80 MG TABLET (FP) PO SCH (22:08)
[2016-05-25] MEDS: GABAPENTIN 300 MG CAPSULE (FP) PO SCH (22:08)
[2016-05-26] MEDS: DOCUSATE SODIUM 100 MG CAPSULE (FP) PO SCH ×3 (05:35→21:34)
[2016-05-26] MEDS: INSULIN SLIDING SCALE (NOVOLOG) 1 VIAL SQ SCH ×4 (06:19→21:46)
[2016-05-26 09:12] LABS: CHOLESTEROL 241 mg/dL (50-200)
[2016-05-26] MEDS: ASPIRIN 81 MG CHEWABLE TABLETS PO SCH (09:20)
[2016-05-26] MEDS: amLODIPine BESYLATE 10 MG TABLET (FP) PO SCH (09:20)
[2016-05-26] MEDS: PANTOPRAZOLE 20 MG TABLET (FP) PO SCH ×2 (09:20→21:35)
[2016-05-26] MEDS: cefTRIAXone 1 GM/50 ML BAG (PRE-DOCKED) IVPB SCH (09:20)
[2016-05-26] MEDS: HEPARIN NA (PORCINE) 5,000 UNITS/ML 1ML VIAL SQ SCH ×2 (09:21→21:34)
[2016-05-26] MEDS: METOPROLOL SUCCINATE 25 MG TAB.SR.24H (FP) PO SCH (09:21)
[2016-05-26] MEDS: POLYETHYLENE GLYCOL 3350 119 GM BTL PO SCH (09:22)
[2016-05-26 09:40] LABS: CALCIUM 8.5 mg/dL (8.5-10.1); COCKROFT - GAULT 66.9715; CREATININE 1.3 mg/dL (0.55-1.02)
[2016-05-26] MEDS: LISINOPRIL 10 MG TABLET (FP) PO SCH (10:02)
[2016-05-26 10:59] LABS: LDH 178 U/L (84-246)
--- NOTE | 2016-05-26 11:17 | CONSULT ---
Admitting History and Physical - Primary Care Physician PCP: Pedro Pablo Mcknight ( ) - Admission History of Present Illness: Per EMR: "HISTORY OF PRESENT ILLNESS: Patient is a 61 year old female with PMH of DM, HTN, Possible CVA who presents to ED earlier today with altered mental status. Patient called a cab to take her to her ophthalmology appointment but apparently gave the wood cabinetmaker the wrong address. She was noted to be confused and became nonresponsive to questions so 911 was called. Upon arrival in ED, patient knows the date, her name and location but is unsure about how she became lost earlier in the day. She states she has had burning urination & increased frequency for last week. She also has had chronic constipation for some time. Denies fever, chills, SOB, CP, headache or diarrhea. Discussed case with daughter who states that mother's cognition has rapidly declined since she had a CVA 1-2 months ago. She was treated at [facility] but daughter does not have any details about the stroke or whether tPA was used. She just knows her mother has had increased difficulty with memory & taking care of herself. Her mother's mental status today is apparently not much different than it has been over the last month. ER course was notable for: (1)UA: 2+LE w/ 1200 WBC UTox: negative for all substances (2)Head CT (-) for acute pathology" Pt seen oob, sleepy, c/o headache. Fairly good historian, reporting stroke in September with right sided weakness and inability to be understood. Speech recovered faster than right side weakness, received rehab at [facility]. Recurrent stroke in December. Pt reports choking daily while eating but denies PNA, congestion. She said she has recurrent periods of sleepyness, feeling "out of it " and confused. 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 Cardiovascular: Yes: HTN ...: No Endocrine: Yes: Diabetes Mellitus - Smoking History Smoking history: Never smoked Have you smoked in the past 12 months: No - Alcohol/Substance Use Hx Alcohol Use: No History - Admission Reason For Visit: URINARY TRACT INFECTION,LETHARGY,DIABETES MELLITUS - Diagnostics X-ray: Report Reviewed CT Scan: Report Reviewed - General Mental Status: Alert and Oriented, Awake and Alert, Able to Follow Commands Attention: Intact Ability to Follow Directions: Excellent Head/Neck Control: WFL - Hearing Hearing: Functional Hearing: Normal Speech Evaluation - Communication Primary Language: DANISH Communication: Yes: Dysarthria Oral Expression Ability: Yes: Mild Impairment - Speech Production Able to Make Needs Known: Yes: WNL Intelligibility: Yes: Mildly Impaired - Speech Characteristics Voice Loudness: Normal Voice Pitch: Yes: Normal Voice Phonatory-based Quality: Yes: Normal Nasal Resonance: Normal Articulation: Yes: Imprecise (mild) Rate of Speech: Too Slow (mild) - Language/Auditory Comprehension Follows: Yes: 2 Stage Simple Commands - Language/Verbal Expression Able to Respond to Simple Queries: Yes: WNL Able to Communicate Wants and Needs: Yes: WNL Functional Communication Status: Yes: WNL - Swallow Evaluation/Bedside Assessment Current Nutritional Intake: Regular, Thin Liquids Oral Secretions: Yes: WFL Dentition: Yes: Adequate, Dental Appliance Upper Facial Symmetry at Rest: Facial Droop Left Facial Symmetry on Retraction: Symmetrical Facial Movement: Controlled Against Resistance Opening: Normal Against Resistance Closing: Normal Pucker Lips: Normal Smile: Normal Lingual Movement: Normal Lingual Speed of Movement: Normal Lingual Movement Strgth Against Opposition: Normal Lingual Movement Characteristics: Normal Velopharyngeal Movement: Normal Laryngeal Movement: Able to Palpate Rate of Intake: WFL Bolus Size: WFL Labial Seal: WFL Chewing: WFL Oral Prep Time: Increased (mild) A-P Transit: WFL Pocketing: None Timing of Swallow: Delayed Coughing/Throat Clear: No (reported not demonstrated) Recommendations - Speech Evaluation, Impression/Plan Impression: Pt reports choking daily while eating. Fairly good historian at this time. Mild dysathria.Mild left facial at rest. HTN/DM Pt does not check blood sugars at home. r/o TIA/CVA vs UTI - Dysphagia Impressions/Plan Swallowing Skills: Impaired Dysphagia Impressions: Mild Impairment, Risk of Aspiration, Ongoing Evaluation *Silent aspiration: cannot be R/O at bedside Dysphagia Treatment Plan: Small Bites, Chin Tuck/Down, 1/2 tsp. at a time, OOB for 1 h. after meals Recommendations: MBS w Esophagus - Recommendations Diet Consistency: Regular (soft) Medication Administration: Whole with water Liquids: Thin Liquids
--- NOTE | 2016-05-26 16:03 | MSN ---
Progress Note (SOAP) - Subjective Chief Complaint: UTI History of Present Illness: Lilia is a 61 y/o female w/ PMHx of DMH, HTN, CVA who is admitted for AMS 2/2 UTI. Patient has new complaints of cough and reproducible chest pain on palpation. Pt still reports dysuria. Denies f/c/n/v/hematochezia/langley/lightheaded. - Current Medications Current Medications: Active Medications Acetaminophen (Tylenol -) 650 mg PO Q4H PRN PRN Reason: FEVER OR PAIN Last Admin: 05/26/16 13:15 Dose: 650 mg Amlodipine Besylate (Norvasc -) 10 mg PO DAILY [facility] Last Admin: 05/26/16 09:20 Dose: 10 mg Aspirin (Asa -) 81 mg PO DAILY [facility] Last Admin: 05/26/16 09:20 Dose: 81 mg Atorvastatin Calcium (Lipitor -) 80 mg PO HS [facility] Last Admin: 05/25/16 22:08 Dose: 80 mg Ceftriaxone Sodium (Rocephin 1gm Ivpb (Pre-Docked)) 1 gm IVPB DAILY [facility] Last Admin: 05/26/16 09:20 Dose: 1 gm Docusate Sodium (Colace -) 100 mg PO TID [facility] Last Admin: 05/26/16 13:15 Dose: 100 mg Gabapentin (Neurontin -) 300 mg PO HS [facility] Last Admin: 05/25/16 22:08 Dose: 300 mg Heparin Sodium (Porcine) (Heparin -) 5,000 unit SQ BID [facility] Last Admin: 05/26/16 09:21 Dose: 5,000 unit Insulin Aspart (Novolog Vial Sliding Scale -) 1 vial SQ ACHS [facility] PRN Reason: Protocol Last Admin: 05/26/16 11:28 Dose: 4 units Lisinopril (Prinivil) 10 mg PO DAILY [facility] Last Admin: 05/26/16 10:02 Dose: 10 mg Metoprolol Succinate (Toprol Xl -) 75 mg PO DAILY [facility] Last Admin: 05/26/16 09:21 Dose: 75 mg Pantoprazole Sodium (Protonix -) 20 mg PO BID [facility] Last Admin: 05/26/16 09:20 Dose: 20 mg Polyethylene Glycol (Miralax (For Daily Use) -) 17 gm PO DAILY [facility] Last Admin: 05/26/16 09:22 Dose: 17 gm - Objective Vital Signs: Vital Signs Temperature 98.8 F 05/26/16 14:57 Pulse Rate 66 05/26/16 14:57 Respiratory Rate 16 05/26/16 14:57 Blood Pressure 147/81 05/26/16 14:57 O2 Sat by Pulse Oximetry (%) 99 05/26/16 00:45 Constitutional: Yes: No Distress, Calm Eyes: Yes: Conjunctiva Clear, EOM Intact HENT: Yes: Atraumatic, Normocephalic Neck: Yes: Trachea Midline Cardiovascular: Yes: Regular Rate and Rhythm Respiratory: Yes: Regular, CTA Bilaterally Gastrointestinal: Yes: Normal Bowel Sounds, Soft Peripheral Pulses WNL: Yes Peripheral Pulses: Left Radial: 2+, Right Radial: 2+, Left Doralis Pedis: 2+, Right Dorsalis Pedis: 2+ Edema: No Neurological: Yes: Alert, Oriented Labs Lab Results: CBC,CMP WBC 9.0 K/mm3 (4.0-10.0) 05/25/16 07:45 RBC 3.57 M/mm3 (3.60-5.2) L 05/25/16 07:45 Hgb 10.5 GM/dL (10.7-15.3) L 05/25/16 07:45 Hct 30.4 % (32.4-45.2) L 05/25/16 07:45 MCV 85.1 fl (80-96) 05/25/16 07:45 MCHC 34.4 g/dl (32.0-36.0) 05/25/16 07:45 RDW 13.1 % (11.6-15.6) 05/25/16 07:45 Plt Count 314 K/MM3 (134-434) D 05/25/16 07:45 MPV 8.3 fl (7.5-11.1) 05/25/16 07:45 Neutrophils % 68.2 % (42.8-82.8) 05/25/16 07:45 Lymphocytes % 23.0 % (8-40) D 05/25/16 07:45 Monocytes % 6.6 % (3.8-10.2) 05/25/16 07:45 Eosinophils % 1.8 % (0-4.5) D 05/25/16 07:45 Basophils % 0.4 % (0-2.0) 05/25/16 07:45 Sodium 144 mmol/L (136-145) 05/26/16 08:38 Potassium 4.4 mmol/L (3.5-5.1) 05/26/16 08:38 Chloride 111 mmol/L (98-107) H 05/26/16 08:38 Carbon Dioxide 24 mmol/L (21-32) 05/26/16 08:38 Anion Gap 9 (8-16) 05/26/16 08:38 BUN 24 mg/dL (7-18) H 05/26/16 08:38 Creatinine 1.3 mg/dL (0.55-1.02) H 05/26/16 08:38 Creat Clearance w eGFR 32.88 (>60) 05/25/16 07:45 POC Glucometer 223 UNITS (()) 05/26/16 11:12 Random Glucose 152 mg/dL (74-106) H 05/26/16 08:38 Calcium 8.5 mg/dL (8.5-10.1) 05/26/16 08:38 Total Bilirubin 0.1 mg/dL (0.2-1.0) L D 05/25/16 07:45 AST 10 U/L (15-37) L D 05/25/16 07:45 ALT 17 U/L (12-78) D 05/25/16 07:45 Alkaline Phosphatase 84 U/L (45-117) 05/25/16 07:45 LD Total 178 U/L (84-246) 05/26/16 07:50 Creatine Kinase 79 IU/L (26-192) 05/24/16 17:35 Troponin I < 0.02 ng/ml (0.00-0.05) 05/24/16 17:35 Total Protein 5.3 g/dl (6.4-8.2) L 05/25/16 07:45 Albumin 2.1 g/dl (3.4-5.0) L 05/25/16 07:45 Cholesterol 241 mg/dL (50-200) H 05/26/16 07:50 Total LDL Cholesterol Cancelled 05/26/16 09:30 Imaging - Results Chest X-ray: Other (No new images to review at this time) Assessment/Plan Encephalopathy 2/2 UTI -Urine Cx and Sensitivity pending: lactose fermenting bacteria -Ceftriaxone 1gm Day 3 -Pt was too weak to partake in physical therapy today; was able to walk a short distance yesterday. Pt wants to go to rehab to build up her strength. ESTELLA -Last reported Cr per [facility]: 1.4 (04/30/16) and 1.7 (05/08/16) -1.3 (1.6), trending down -Stop IVF -Can restart lisinopril HTN -Norvasc 10mg -Metoprolol Succinate 75mg -Lisinopril 10mg Stroke ppx -ASA 81mg -Lipitor 80mg qhs
--- NOTE | 2016-05-26 16:58 | PN ---
Addendum entered and electronically signed by Miya Morales RES 05/26/16 17: 04: P: speech/swallow eval will do barium swallow Original Note: Physical Exam: SUBJECTIVE: Patient seen and examined Patient resting in bed NAD. no acute events. afebrile and hemodynamically stable. aaox3. Feels well. Denies weakness or paresthesia. dysuria resolved. Denies chest pain, sob, cough, flank pain, abd pain, diarrhea. OBJECTIVE: Vital Signs Period Temp Pulse Resp BP Sys/Villarreal Pulse Ox Last 24 Hr 98.8 F 66 16 147/81 GENERAL: The patient is awake, alert, and fully oriented, in no acute distress. HEAD: Normal with no signs of trauma. EYES: PERRL, extraocular movements intact, sclera anicteric, conjunctiva clear. No ptosis. ENT: moist mucous membranes. NECK: Trachea midline, full range of motion, supple. Thorax: reproducible chest wall tenderness LUNGS: Breath sounds equal, clear to auscultation bilaterally HEART: Regular rate and rhythm, S1, S2 ABDOMEN: Soft, nontender, nondistended, normoactive bowel sounds, EXTREMITIES: 2+ pulses, warm, well-perfused, no edema. NEUROLOGICAL: Cranial nerves II through XII intact. Normal speech, gait not observed. upper and lower extremities strength 5/5 b/l. brachial reflexes 1+ b/l , patellar reflexes 1+ b/l, no paresthesia PSYCH: Normal mood, normal affect. SKIN: Warm, dry Laboratory Results - last 24 hr 05/26/16 11:12 POC Glucometer 223 Active Medications Generic Name Dose Route Start Last Admin Trade Name Locq PRN Reason Stop Dose Admin Acetaminophen 650 mg 05/25/16 00:06 05/26/16 13:15 Tylenol - PO 650 mg Q4H PRN Administration FEVER OR PAIN Amlodipine Besylate 10 mg 05/25/16 03:45 05/26/16 09:20 Norvasc - PO 10 mg DAILY PATRIC Administration Aspirin 81 mg 05/25/16 10:00 05/26/16 09:20 Asa - PO 81 mg DAILY PATRIC Administration Atorvastatin Calcium 80 mg 05/25/16 22:00 05/25/16 22:08 Lipitor - PO 80 mg HS PATRIC Administration Ceftriaxone Sodium 1 gm 05/25/16 14:00 04/20/17 09:20 Rocephin 1gm Ivpb (Pre-Docked) IVPB 1 gm DAILY PATRIC Administration Docusate Sodium 100 mg 05/25/16 06:00 05/26/16 13:15 Colace - PO 100 mg TID PATRIC Administration Gabapentin 300 mg 05/25/16 22:00 05/25/16 22:08 Neurontin - PO 300 mg HS PATRIC Administration Heparin Sodium (Porcine) 5,000 unit 05/25/16 10:00 05/26/16 09:21 Heparin - SQ 5,000 unit BID PATRIC Administration Insulin Aspart 1 vial 05/25/16 07:00 05/26/16 11:28 Novolog Vial Sliding Scale - SQ 4 units ACHS PATRIC Administration Protocol Lisinopril 10 mg 05/25/16 03:45 05/26/16 10:02 Prinivil PO 10 mg DAILY PATRIC Administration Metoprolol Succinate 75 mg 05/26/16 10:00 05/26/16 09:21 Toprol Xl - PO 75 mg DAILY PATRIC Administration Pantoprazole Sodium 20 mg 05/25/16 22:00 05/26/16 09:20 Protonix - PO 20 mg BID PATRIC Administration Polyethylene Glycol 17 gm 05/25/16 10:00 05/26/16 09:22 Miralax (For Daily Use) - PO 17 gm DAILY PATRIC Administration ASSESSMENT/PLAN: This is a 61 yo F with PMH of DM, HTN, CVA vs tia 2 mo ago that presented with RUE weakness, who presents to ED with altered mental status and UTI. Altered mental status -likley metabolic, in setting of acute UTI and recent TIA/CVA -now at baseline -CT head no acute path -already on asa 81 and Lipitor 80 hs -PT in progress (walked in hallway 75 ft) -patient wants subacute rehab ESTELLA vs CKD -Creatinine 1.3 at baseline UTI -Ceftriaxone d 3 -Urine culture lactose fermenting gnb Constipation, chronic -colace, miralax -known to be associated with UTI NIDDM2 -sliding scale -BGM ACHS -Gabapentin HTN -Norvasc 10mg PO daily, Metoprolol succinate 75mg PO daily -restart Lisinopril 10mg PO daily FEN: no IVF mild hypernatremia PPI, scd Diabetic diet Problem List - Problems (1) Diabetes Code(s): E11.9 - TYPE 2 DIABETES MELLITUS WITHOUT COMPLICATIONS Qualifiers: Diabetes mellitus type: type 1 Diabetes mellitus complication status: with hyperglycemia Qualified Code(s): E10.65 - Type 1 diabetes mellitus with hyperglycemia (2) Lethargy Code(s): R53.83 - OTHER FATIGUE (3) Renal insufficiency Code(s): N28.9 - DISORDER OF KIDNEY AND URETER, UNSPECIFIED (4) UTI (urinary tract infection) Code(s): N39.0 - URINARY TRACT INFECTION, SITE NOT SPECIFIED Qualifiers: Urinary tract infection type: site unspecified Hematuria presence: without hematuria Qualified Code(s): N39.0 - Urinary tract infection, site not specified (5) HBP (high blood pressure) Code(s): I10 - ESSENTIAL (PRIMARY) HYPERTENSION Qualifiers: Hypertension type: essential hypertension Qualified Code(s): I10 - Essential (primary) hypertension Visit type - Emergency Visit Emergency Visit: Yes ED Registration Date: 05/26/16 Care time: The patient presented to the Emergency Department on the above date and was hospitalized for further evaluation of their emergent condition. - New Patient This patient is new to me today: No - Critical Care Critical Care patient: No - Discharge Referral [facility]erred to [facility] Med P.C.: No
--- NOTE | 2016-05-26 18:47 | PN ---
Teaching Attending Note Name of Resident: Miya Morales ATTENDING PHYSICIAN STATEMENT I saw and evaluated the patient. I reviewed the resident's note and discussed the case with the resident. I agree with the resident's findings and plan as documented. SUBJECTIVE: no fever or chills, has been coughing since last night , with clear sputum production . has L sided cp , james with cough started last night and is continuous still OBJECTIVE: NAd , awake , alert and oriented x3 CV: RRR Lungs: CTAb Ext: no edema Neuro: EOMI, round equal pupils , reactive to light , no facial droop, tongue at mid line , uvula at mid line , nl facial sensation . Strength 5/5 in upper and lower ext proximally and distally except L hip flexion at 4/5 . nl sensation to light touch except R arm decreased compared to L ( states that her initial stroke was with residual R upper ext numbness ) . reflexes 2+ biceps and 1+ knee jerk b/l . ASSESSMENT AND PLAN: 61 y/o lady with h/o HTN, HLP, recent stroke ( in , at [facility] ) , DM who presented with AMS and was found to have a UTI 1- complicated UTI: - follow urine cx , G- lactose fermenting bacilli , possibly E coli - cont ceftriaxone day 3 of abx ( 04/12) 2- AMS , Metabolic encephalopathy due to infection . now at base line . I do not suspect a new stroke, possible reactivation of old stroke sx with infection - still waiting on records from [facility] - cont secondary prophylaxis for stroke , asa , lipitor 3- ESTELLA :base line cr 1.4-1.7 - dc IVF as cr at base line , and has cough now 4- DM : SSI 5- DVT PX PT , will need re-evaluation . possible SNF Will dc tomorrow if sensitivity is back
[2016-05-26] MEDS ORDERED: INSULIN (NOVOLOG) ASPART 100 UNITS/ML 10ML VIAL ONE (21:25)
[2016-05-26] MEDS: GABAPENTIN 300 MG CAPSULE (FP) PO SCH (21:35)
[2016-05-26] MEDS: ATORVASTATIN CA 80 MG TABLET (FP) PO SCH (21:35)
[2016-05-27] MEDS: DOCUSATE SODIUM 100 MG CAPSULE (FP) PO SCH ×3 (06:17→23:05)
[2016-05-27] MEDS: INSULIN SLIDING SCALE (NOVOLOG) 1 VIAL SQ SCH ×4 (06:20→23:06)
[2016-05-27] MEDS: amLODIPine BESYLATE 10 MG TABLET (FP) PO SCH ×2 (06:51→09:30)
[2016-05-27 08:39] LABS: CALCIUM 8.9 mg/dL (8.5-10.1); COCKROFT - GAULT 54.417; CREATININE 1.6 mg/dL (0.55-1.02)
[2016-05-27] MEDS ORDERED: amLODIPine BESYLATE 10 MG TABLET (FP) PO ONE (09:09)
[2016-05-27] MEDS: ASPIRIN 81 MG CHEWABLE TABLETS PO SCH (09:25)
[2016-05-27] MEDS: cefTRIAXone 1 GM/50 ML BAG (PRE-DOCKED) IVPB SCH (09:25)
[2016-05-27] MEDS: HEPARIN NA (PORCINE) 5,000 UNITS/ML 1ML VIAL SQ SCH ×2 (09:25→23:05)
[2016-05-27] MEDS: METOPROLOL SUCCINATE 25 MG TAB.SR.24H (FP) PO SCH (09:25)
[2016-05-27] MEDS: POLYETHYLENE GLYCOL 3350 119 GM BTL PO SCH (09:26)
[2016-05-27] MEDS: LISINOPRIL 10 MG TABLET (FP) PO SCH (09:29)
[2016-05-27] MEDS: PANTOPRAZOLE 20 MG TABLET (FP) PO SCH ×2 (09:35→23:07)
[2016-05-27] MEDS ORDERED: LABETALOL HCL 5 MG/1 ML (100MG/20 ML VIAL) IVPUSH ONE (10:08)
[2016-05-27] MEDS ORDERED: LISINOPRIL 10 MG TABLET (FP) PO ONE (11:00)
--- NOTE | 2016-05-27 13:26 | MSN ---
Progress Note (SOAP) - Subjective Chief Complaint: UTI History of Present Illness: Lilia is a 61 y/o f admitted for encephalopathy 2/2 UTI. Pt reports significant improvement with dysuria; less burning sensation than yesterday but still present. Denies f/c/n/v/HAAS/hematochezia - Current Medications Current Medications: Active Medications Acetaminophen (Tylenol -) 650 mg PO Q4H PRN PRN Reason: FEVER OR PAIN Last Admin: 05/26/16 13:15 Dose: 650 mg Amlodipine Besylate (Norvasc -) 10 mg PO DAILY [facility] Last Admin: 05/27/16 09:30 Dose: Not Given Aspirin (Asa -) 81 mg PO DAILY [facility] Last Admin: 05/27/16 09:25 Dose: 81 mg Atorvastatin Calcium (Lipitor -) 80 mg PO HS [facility] Last Admin: 05/26/16 21:35 Dose: 80 mg Cephalexin HCl (Keflex -) 500 mg PO BID [facility] Stop: 05/31/16 10:59 Docusate Sodium (Colace -) 100 mg PO TID [facility] Last Admin: 05/27/16 06:17 Dose: 100 mg Gabapentin (Neurontin -) 300 mg PO HS [facility] Last Admin: 05/26/16 21:35 Dose: 300 mg Heparin Sodium (Porcine) (Heparin -) 5,000 unit SQ BID [facility] Last Admin: 05/27/16 09:25 Dose: 5,000 unit Insulin Aspart (Novolog Vial Sliding Scale -) 1 vial SQ ACHS [facility] PRN Reason: Protocol Last Admin: 05/27/16 11:31 Dose: 4 units Lisinopril (Prinivil) 20 mg PO DAILY [facility] Metoprolol Succinate (Toprol Xl -) 75 mg PO DAILY [facility] Last Admin: 05/27/16 09:25 Dose: 75 mg Pantoprazole Sodium (Protonix -) 20 mg PO BID [facility] Last Admin: 05/27/16 09:35 Dose: 20 mg Polyethylene Glycol (Miralax (For Daily Use) -) 17 gm PO DAILY [facility] Last Admin: 05/27/16 09:26 Dose: 17 gm - Objective Vital Signs: Vital Signs Temperature 97.9 F 05/27/16 10:00 Pulse Rate 75 05/27/16 10:00 Respiratory Rate 20 05/27/16 10:00 Blood Pressure 183/105 05/27/16 10:00 O2 Sat by Pulse Oximetry (%) 97 05/27/16 09:00 Constitutional: Yes: No Distress, Calm Eyes: Yes: Conjunctiva Clear, EOM Intact HENT: Yes: Atraumatic, Normocephalic Neck: Yes: Trachea Midline Cardiovascular: Yes: Regular Rate and Rhythm Respiratory: Yes: CTA Bilaterally Gastrointestinal: Yes: Soft. No: Tenderness Peripheral Pulses WNL: Yes Peripheral Pulses: Left Radial: 2+, Right Radial: 2+, Left Doralis Pedis: 2+, Right Dorsalis Pedis: 2+ Edema: No Neurological: Yes: Alert, Oriented Labs Lab Results: CBC, BMP 05/27/16 07:00 CBC,CMP WBC 9.0 K/mm3 (4.0-10.0) 05/25/16 07:45 RBC 3.57 M/mm3 (3.60-5.2) L 05/25/16 07:45 Hgb 10.5 GM/dL (10.7-15.3) L 05/25/16 07:45 Hct 30.4 % (32.4-45.2) L 05/25/16 07:45 MCV 85.1 fl (80-96) 05/25/16 07:45 MCHC 34.4 g/dl (32.0-36.0) 05/25/16 07:45 RDW 13.1 % (11.6-15.6) 05/25/16 07:45 Plt Count 314 K/MM3 (134-434) D 05/25/16 07:45 MPV 8.3 fl (7.5-11.1) 05/25/16 07:45 Neutrophils % 68.2 % (42.8-82.8) 05/25/16 07:45 Lymphocytes % 23.0 % (8-40) D 05/25/16 07:45 Monocytes % 6.6 % (3.8-10.2) 05/25/16 07:45 Eosinophils % 1.8 % (0-4.5) D 05/25/16 07:45 Basophils % 0.4 % (0-2.0) 05/25/16 07:45 Sodium 142 mmol/L (136-145) 05/27/16 07:00 Potassium 4.9 mmol/L (3.5-5.1) 05/27/16 07:00 Chloride 109 mmol/L (98-107) H 05/27/16 07:00 Carbon Dioxide 24 mmol/L (21-32) 05/27/16 07:00 Anion Gap 9 (8-16) 05/27/16 07:00 BUN 34 mg/dL (7-18) H D 05/27/16 07:00 Creatinine 1.6 mg/dL (0.55-1.02) H D 05/27/16 07:00 Creat Clearance w eGFR 32.88 (>60) 05/25/16 07:45 POC Glucometer 231 UNITS (()) 05/27/16 11:16 Random Glucose 141 mg/dL (74-106) H 05/27/16 07:00 Calcium 8.9 mg/dL (8.5-10.1) 05/27/16 07:00 Total Bilirubin 0.1 mg/dL (0.2-1.0) L D 05/25/16 07:45 AST 10 U/L (15-37) L D 05/25/16 07:45 ALT 17 U/L (12-78) D 05/25/16 07:45 Alkaline Phosphatase 84 U/L (45-117) 05/25/16 07:45 LD Total 178 U/L (84-246) 05/26/16 07:50 Creatine Kinase 79 IU/L (26-192) 05/24/16 17:35 Troponin I < 0.02 ng/ml (0.00-0.05) 05/24/16 17:35 Total Protein 5.3 g/dl (6.4-8.2) L 05/25/16 07:45 Albumin 2.1 g/dl (3.4-5.0) L 05/25/16 07:45 Cholesterol 241 mg/dL (50-200) H 05/26/16 07:50 Total LDL Cholesterol Cancelled 05/26/16 09:30 Imaging - Results Chest X-ray: Other (No new images to review at this time) Assessment/Plan 61 y/o Female with PMHx DM, HTN, CVA admitted for encephalopathy 2/2 UTI. Encephalopathy 2/2 complicated UTI -Urine Cx and Sensitivity: E. coli sensitive to Keflex -Ceftriaxone 1gm Day 4 -If BP improves, can discharge to rehab with Keflex for three days. Pt may also need visiting nurse services. ESTELLA -Last reported Cr per [facility]: 1.4 (04/30/16) and 1.7 (05/08/16) -1.6 (1.3), baseline -Can increase lisinopril to 20mg HTN -183/75 today -Norvasc 10mg -Metoprolol Succinate 75mg -Lisinopril increased to 20mg Stroke ppx -ASA 81mg -Lipitor 80mg qhs DM -Novolog sliding scale
--- NOTE | 2016-05-27 15:28 | PN ---
Physical Exam: SUBJECTIVE: Patient seen and examined OBJECTIVE: Vital Signs Period Temp Pulse Resp BP Sys/Villarreal Pulse Ox Last 24 Hr 97.9 F-98.8 F 62-75 18-20 142-183/68-105 97-97 GENERAL: The patient is awake, alert, and fully oriented, in no acute distress. HEAD: Normal with no signs of trauma. EYES: PERRL, extraocular movements intact, sclera anicteric, conjunctiva clear. No ptosis. ENT: Ears normal, nares patent, oropharynx clear without exudates, moist mucous membranes. NECK: Trachea midline, full range of motion, supple. LUNGS: Breath sounds equal, clear to auscultation bilaterally, no wheezes, no crackles, no accessory muscle use. HEART: Regular rate and rhythm, S1, S2 without murmur, rub or gallop. ABDOMEN: Soft, nontender, nondistended, normoactive bowel sounds, no guarding, no rebound, no hepatosplenomegaly, no masses. EXTREMITIES: 2+ pulses, warm, well-perfused, no edema. NEUROLOGICAL: Cranial nerves II through XII grossly intact. Normal speech, gait not observed. PSYCH: Normal mood, normal affect. SKIN: Warm, dry, normal turgor, no rashes or lesions noted Laboratory Results - last 24 hr 05/26/16 05/26/16 05/27/16 17:16 21:43 06:19 Sodium Potassium Chloride Carbon Dioxide Anion Gap BUN Creatinine POC Glucometer 148 381 136 Random Glucose Calcium 05/27/16 05/27/16 07:00 11:16 Sodium 142 Potassium 4.9 Chloride 109 H Carbon Dioxide 24 Anion Gap 9 BUN 34 H D Creatinine 1.6 H D POC Glucometer 231 Random Glucose 141 H Calcium 8.9 Active Medications Generic Name Dose Route Start Last Admin Trade Name Freq PRN Reason Stop Dose Admin Acetaminophen 650 mg 05/25/16 00:06 05/26/16 13:15 Tylenol - PO 650 mg Q4H PRN Administration FEVER OR PAIN Amlodipine Besylate 10 mg 05/25/16 03:45 05/27/16 09:30 Norvasc - PO Not Given DAILY PATRIC Aspirin 81 mg 05/25/16 10:00 05/27/16 09:25 Asa - PO 81 mg DAILY PATRIC Administration Atorvastatin Calcium 80 mg 05/25/16 22:00 05/26/16 21:35 Lipitor - PO 80 mg HS PATRIC Administration Cephalexin HCl 500 mg 05/28/16 11:00 Keflex - PO 05/31/16 10:59 BID PATRIC Docusate Sodium 100 mg 05/25/16 06:00 05/27/16 14:29 Colace - PO 100 mg TID PATRIC Administration Gabapentin 300 mg 05/25/16 22:00 05/26/16 21:35 Neurontin - PO 300 mg HS PATRIC Administration Heparin Sodium (Porcine) 5,000 unit 05/25/16 10:00 05/27/16 09:25 Heparin - SQ 5,000 unit BID PATRIC Administration Insulin Aspart 1 vial 05/25/16 07:00 05/27/16 11:31 Novolog Vial Sliding Scale - SQ 4 units ACHS PATRIC Administration Protocol Lisinopril 20 mg 05/28/16 10:00 Prinivil PO DAILY PATRIC Metoprolol Succinate 75 mg 05/26/16 10:00 05/27/16 09:25 Toprol Xl - PO 75 mg DAILY PATRIC Administration Pantoprazole Sodium 20 mg 05/25/16 22:00 05/27/16 09:35 Protonix - PO 20 mg BID PATRIC Administration Polyethylene Glycol 17 gm 05/25/16 10:00 05/27/16 09:26 Miralax (For Daily Use) - PO 17 gm DAILY PATRIC Administration ASSESSMENT/PLAN: Problem List - Problems (1) Diabetes Code(s): E11.9 - TYPE 2 DIABETES MELLITUS WITHOUT COMPLICATIONS Qualifiers: Diabetes mellitus type: type 1 Diabetes mellitus complication status: with hyperglycemia Qualified Code(s): E10.65 - Type 1 diabetes mellitus with hyperglycemia (2) Lethargy Code(s): R53.83 - OTHER FATIGUE (3) Renal insufficiency Code(s): N28.9 - DISORDER OF KIDNEY AND URETER, UNSPECIFIED (4) UTI (urinary tract infection) Code(s): N39.0 - URINARY TRACT INFECTION, SITE NOT SPECIFIED Qualifiers: Urinary tract infection type: site unspecified Hematuria presence: without hematuria Qualified Code(s): N39.0 - Urinary tract infection, site not specified (5) HBP (high blood pressure) Code(s): I10 - ESSENTIAL (PRIMARY) HYPERTENSION Qualifiers: Hypertension type: essential hypertension Qualified Code(s): I10 - Essential (primary) hypertension
--- NOTE | 2016-05-27 15:36 | DS ---
Addendum entered and electronically signed by Miya Morales RES 05/30/16 14: 48: metoprolol increased to 100 d and lisinopril 40 d Original Note: Physical Exam: SUBJECTIVE: Patient seen and examined Patient resting in bed NAD. no acute events. afebrile and hemodynamically stable. aaox3. Feels well. Denies weakness or paresthesia. dysuria resolved. Denies chest pain, sob, cough, flank pain, abd pain, diarrhea. OBJECTIVE: Vital Signs Period Temp Pulse Resp BP Sys/Villarreal Pulse Ox Last 24 Hr 97.9 F-98.8 F 62-75 18-20 142-183/68-105 97-97 PHYSICAL EXAM GENERAL: The patient is awake, alert, and fully oriented, in no acute distress. HEAD: Normal with no signs of trauma. EYES: PERRL, extraocular movements intact, sclera anicteric, conjunctiva clear. No ptosis. ENT: moist mucous membranes. NECK: Trachea midline, full range of motion, supple. LUNGS: Breath sounds equal, clear to auscultation bilaterally HEART: Regular rate and rhythm, S1, S2 ABDOMEN: Soft, nontender, nondistended, normoactive bowel sounds, EXTREMITIES: 2+ pulses, warm, well-perfused, no edema. NEUROLOGICAL: Cranial nerves II through XII intact. Normal speech, gait not observed. upper and lower extremities strength 5/5 b/l. brachial reflexes 1+ b/l , patellar reflexes 1+ b/l, no paresthesia PSYCH: Normal mood, normal affect. SKIN: Warm, dry LABS Laboratory Results - last 24 hr 05/26/16 05/26/16 05/27/16 17:16 21:43 06:19 Sodium Potassium Chloride Carbon Dioxide Anion Gap BUN Creatinine POC Glucometer 148 381 136 Random Glucose Calcium 05/27/16 05/27/16 07:00 11:16 Sodium 142 Potassium 4.9 Chloride 109 H Carbon Dioxide 24 Anion Gap 9 BUN 34 H D Creatinine 1.6 H D POC Glucometer 231 Random Glucose 141 H Calcium 8.9 HOSPITAL COURSE: Date of Admission:05/26/16 Patient is a 61 year old female with PMH of DM, HTN, Possible CVA who presents to ED earlier today with altered mental status. Patient called a cab to take her to her ophthalmology appointment but apparently gave the cable engineer outside plant the wrong address. She was noted to be confused and became nonresponsive to questions so 911 was called. at mental baseline in ED but reported dysuria and frequency. Daughter reported that mother's cognition has rapidly declined since she had a CVA 1-2 months ago. She was admitted for Altered mental status due to complicated UTI in diabetic. She was treated with IV rocephin and then placed on PO Keflex. Her Lisinoptil was increased to 20 d due to poorly controlled BP. She has a normal barium swallow (reported choking). She was discharged to rehab facility. Date of Discharge: 05/27/16 Minutes to complete discharge: 46 (na) Discharge Summary Reason For Visit: URINARY TRACT INFECTION,LETHARGY,DIABETES MELLITUS Current Active Problems Diabetes (Acute) Lethargy (Acute) Renal insufficiency (Acute) UTI (urinary tract infection) (Acute) Condition: Good - Instructions Diet, Activity, Other Instructions: you were in the hospital because you became confused and disoriented. This was most likley caused by a urinary tract infection that we treated with intravenous antibiotic. You will take 3 days of oral antibiotic Keflex twice daily (last dose monday night). You will go to a rehab facility to become stronger and will need visiting nursing at home. Please follow up with your family doctor as soon as possible to adjust blood pressure medication. We increased your lisinopril to 20 mg daily. Return to hospital if symptoms resume Referrals: Ed Cohen MD [Primary Care Provider] - 1 Week Disposition: LONG TERM FACILITY - Home Medications Comprehensive Discharge Medication List: Ambulatory Orders Aspirin [ASA -] 81 mg PO DAILY #20 [email or web address] 01/14/16 Amlodipine Besylate [Norvasc -] 10 mg PO DAILY 05/24/16 Aspirin [ASA -] 81 mg PO DAILY 05/24/16 Atorvastatin Ca [Lipitor] 80 mg PO HS 05/24/16 Cephalexin Monohydrate [Keflex -] 500 mg PO Q6H #20 capsule 05/24/16 Gabapentin [Neurontin] 300 mg PO HS 05/24/16 Glipizide 5 mg PO DAILY 05/24/16 Insulin Glargine,Hum.rec.anlog [Lantus (10mL VIAL) -] 20 units SQ HS 05/24/16 Metoprolol Succinate [Toprol Xl] 75 mg PO DAILY 05/24/16 Metoprolol Succinate [Toprol XL -] 25 mg PO DAILY 05/25/16 Lisinopril [Prinivil] 20 mg PO DAILY #30 tablet 05/27/16 Problem List - Problems (1) Diabetes Code(s): E11.9 - TYPE 2 DIABETES MELLITUS WITHOUT COMPLICATIONS Qualifiers: Diabetes mellitus type: type 2 Diabetes mellitus complication status: with hyperglycemia Qualified Code(s): E10.65 - Type 1 diabetes mellitus with hyperglycemia (2) Renal insufficiency Code(s): N28.9 - DISORDER OF KIDNEY AND URETER, UNSPECIFIED (3) UTI (urinary tract infection) Code(s): N39.0 - URINARY TRACT INFECTION, SITE NOT SPECIFIED Qualifiers: Urinary tract infection type: site unspecified Hematuria presence: without hematuria Qualified Code(s): N39.0 - Urinary tract infection, site not specified (4) HBP (high blood pressure) Code(s): I10 - ESSENTIAL (PRIMARY) HYPERTENSION Qualifiers: Hypertension type: essential hypertension Qualified Code(s): I10 - Essential (primary) hypertension This patient is new to me today: No Emergency Visit: Yes ED Registration Date: 05/26/16 Care time: The patient presented to the Emergency Department on the above date and was hospitalized for further evaluation of their emergent condition. Critical Care patient: No - Discharge Referral Referred to [facility] Med P.C.: No
--- NOTE | 2016-05-27 17:51 | PN ---
Teaching Attending Note Name of Resident: Miya Morales ATTENDING PHYSICIAN STATEMENT I saw and evaluated the patient. I reviewed the resident's note and discussed the case with the resident. I agree with the resident's findings and plan as documented. SUBJECTIVE: no fever or chills, no abd pain , no HAAS , feels better OBJECTIVE: NAd , awake , alert and oriented x3 CV: RRR Lungs: CTAb Ext: no edema Neuro: EOMI, round equal pupils , reactive to light , no facial droop, tongue at mid line , uvula at mid line , nl facial sensation . Strength 5/5 in upper and lower ext proximally and distally except L hip flexion at 4/5 . reflexes 2 + biceps and 1+ knee jerk b/l . ASSESSMENT AND PLAN: 61 y/o lady with h/o HTN, HLP, recent stroke ( in , at [facility] ) , DM who presented with AMS and was found to have a UTI 1- Complicated UTI: -Ucx with E coli, change abx to keflex - cont ceftriaxone day 4 of abx ( 05/13) 2- AMS , Metabolic encephalopathy due to infection . now at base line . - cont secondary prophylaxis for stroke , asa , lipitor 3- ESTELLA :at base line base line ( cr 1.4-1.7) 4-HTN urgency, gave one extra dose of lisinpril this am , and increased daily lisinopril to 20 daily 5- DVT PX dispo: await for rehab approval
[2016-05-27] MEDS: GABAPENTIN 300 MG CAPSULE (FP) PO SCH (23:06)
[2016-05-27] MEDS: ATORVASTATIN CA 80 MG TABLET (FP) PO SCH (23:06)
[2016-05-28] MEDS: DOCUSATE SODIUM 100 MG CAPSULE (FP) PO SCH ×3 (06:48→21:41)
[2016-05-28] MEDS: INSULIN SLIDING SCALE (NOVOLOG) 1 VIAL SQ SCH ×4 (06:49→21:42)
[2016-05-28] MEDS: METOPROLOL SUCCINATE 25 MG TAB.SR.24H (FP) PO SCH (09:07)
[2016-05-28] MEDS: LISINOPRIL 20 MG TABLET (FP) PO SCH (09:07)
[2016-05-28] MEDS: amLODIPine BESYLATE 10 MG TABLET (FP) PO SCH (09:07)
[2016-05-28] MEDS: PANTOPRAZOLE 20 MG TABLET (FP) PO SCH ×2 (09:07→21:41)
[2016-05-28] MEDS: ASPIRIN 81 MG CHEWABLE TABLETS PO SCH (09:07)
[2016-05-28] MEDS: HEPARIN NA (PORCINE) 5,000 UNITS/ML 1ML VIAL SQ SCH ×2 (09:08→21:41)
[2016-05-28] MEDS ORDERED: PT OWN MED DRAWER 7, Y5N ONE (11:54)
[2016-05-28] MEDS ORDERED: INSULIN (NOVOLOG) ASPART 100 UNITS/ML 10ML VIAL ONE ×2 (11:54→17:54)
[2016-05-28] MEDS: CEPHALEXIN MONOHYDRATE 500 MG CAPSULE (UD) PO SCH ×2 (12:05→21:41)
--- NOTE | 2016-05-28 12:31 | PN ---
Physical Exam: SUBJECTIVE: Patient seen and examined Patient resting in bed NAD. no acute events. afebrile and hemodynamically stable. aaox3. Feels well. Denies weakness or paresthesia. No dysuria. Denies chest pain, sob, cough, flank pain, abd pain, diarrhea. OBJECTIVE: Vital Signs Period Temp Pulse Resp BP Sys/Villarreal Pulse Ox Last 24 Hr 98 F-98.6 F 61-71 18-18 138-192/68-89 99-99 GENERAL: The patient is awake, alert, and fully oriented, in no acute distress. HEAD: Normal with no signs of trauma. EYES: PERRL, extraocular movements intact, sclera anicteric, conjunctiva clear. No ptosis. ENT: moist mucous membranes. NECK: Trachea midline, full range of motion, supple. Thorax: reproducible chest wall tenderness LUNGS: Breath sounds equal, clear to auscultation bilaterally HEART: Regular rate and rhythm, S1, S2 ABDOMEN: Soft, nontender, nondistended, normoactive bowel sounds, EXTREMITIES: 2+ pulses, warm, well-perfused, no edema. NEUROLOGICAL: Cranial nerves II through XII intact. Normal speech, gait not observed. upper and lower extremities strength 5/5 b/l. brachial reflexes 1+ b/l , patellar reflexes 1+ b/l, no paresthesia PSYCH: Normal mood, normal affect. SKIN: Warm, dry Laboratory Results - last 24 hr 05/27/16 05/27/16 05/28/16 17:40 23:04 06:47 POC Glucometer 179 203 126 05/28/16 05/28/16 09:17 11:46 POC Glucometer 200 208 Active Medications Generic Name Dose Route Start Last Admin Trade Name Freq PRN Reason Stop Dose Admin Acetaminophen 650 mg 05/25/16 00:06 05/26/16 13:15 Tylenol - PO 650 mg Q4H PRN Administration FEVER OR PAIN Amlodipine Besylate 10 mg 05/25/16 03:45 05/28/16 09:07 Norvasc - PO 10 mg DAILY PATRIC Administration Aspirin 81 mg 05/25/16 10:00 05/28/16 09:07 Asa - PO 81 mg DAILY PATRIC Administration Atorvastatin Calcium 80 mg 05/25/16 22:00 05/27/16 23:06 Lipitor - PO 80 mg HS PATRIC Administration Cephalexin HCl 500 mg 05/28/16 11:00 05/28/16 12:05 Keflex - PO 05/31/16 10:59 500 mg BID PATRIC Administration Docusate Sodium 100 mg 05/25/16 06:00 05/28/16 06:48 Colace - PO 100 mg TID PATRIC Administration Gabapentin 300 mg 05/25/16 22:00 05/27/16 23:06 Neurontin - PO 300 mg HS PATRIC Administration Heparin Sodium (Porcine) 5,000 unit 05/25/16 10:00 05/28/16 09:08 Heparin - SQ 5,000 unit BID PATRIC Administration Insulin Aspart 1 vial 05/25/16 07:00 05/28/16 12:05 Novolog Vial Sliding Scale - SQ 4 units ACHS PATRIC Administration Protocol Lisinopril 20 mg 05/28/16 10:00 05/28/16 09:07 Prinivil PO 20 mg DAILY PATRIC Administration Metoprolol Succinate 75 mg 05/26/16 10:00 05/28/16 09:07 Toprol Xl - PO 75 mg DAILY PATRIC Administration Pantoprazole Sodium 20 mg 05/25/16 22:00 05/28/16 09:07 Protonix - PO 20 mg BID PATRIC Administration Polyethylene Glycol 17 gm 05/25/16 10:00 05/27/16 09:26 Miralax (For Daily Use) - PO 17 gm DAILY PATRIC Administration ASSESSMENT/PLAN: This is a 61 yo F with PMH of DM, HTN, CVA vs tia 2 mo ago that presented with RUE weakness, who presents to ED with altered mental status and UTI. Altered mental status -likley metabolic, in setting of acute UTI and recent TIA/CVA -now at baseline -awaiting insurance authorization for subacute rehab UTI -PO cephalexin (last dose mon night) Constipation, chronic -colace, miralax -known to be associated with UTI NIDDM2 -sliding scale -BGM ACHS -Gabapentin HTN -Norvasc 10mg PO daily, Metoprolol succinate 75mg PO daily -restart Lisinopril 20mg PO daily -If BP still poorly controlled, may increase metoprolol to 100 d FEN: no IVF no further labs indicated PPI, scd Diabetic diet Dispo: d/c to rehab Problem List - Problems (1) Diabetes Code(s): E11.9 - TYPE 2 DIABETES MELLITUS WITHOUT COMPLICATIONS Qualifiers: Diabetes mellitus type: type 2 Diabetes mellitus complication status: with hyperglycemia (2) Renal insufficiency Code(s): N28.9 - DISORDER OF KIDNEY AND URETER, UNSPECIFIED (3) UTI (urinary tract infection) Code(s): N39.0 - URINARY TRACT INFECTION, SITE NOT SPECIFIED Qualifiers: Urinary tract infection type: site unspecified Hematuria presence: without hematuria Qualified Code(s): N39.0 - Urinary tract infection, site not specified (4) HBP (high blood pressure) Code(s): I10 - ESSENTIAL (PRIMARY) HYPERTENSION Qualifiers: Hypertension type: essential hypertension Qualified Code(s): I10 - Essential (primary) hypertension Visit type - Emergency Visit Emergency Visit: Yes ED Registration Date: 05/26/16 Care time: The patient presented to the Emergency Department on the above date and was hospitalized for further evaluation of their emergent condition. - New Patient This patient is new to me today: No - Critical Care Critical Care patient: No - Discharge Referral Referred to [facility] Med P.C.: No
[2016-05-28] MEDS: POLYETHYLENE GLYCOL 3350 119 GM BTL PO SCH (13:19)
--- NOTE | 2016-05-28 13:55 | PN ---
Teaching Attending Note Name of Resident: Miya Morales ATTENDING PHYSICIAN STATEMENT I saw and evaluated the patient. I reviewed the resident's note and discussed the case with the resident. I agree with the resident's findings and plan as documented. SUBJECTIVE: no fever or chills, no abd pain , no HAAS ,. OBJECTIVE: NAd , awake , alert and oriented x3 CV: RRR Lungs: CTAb Ext: no edema Neuro: EOMI, round equal pupils , reactive to light , no facial droop, tongue at mid line , uvula at mid line , nl facial sensation . Strength 5/5 in upper and lower ext proximally and distally . reflexes 2+ biceps and 1+ knee jerk b/l . ASSESSMENT AND PLAN: 61 y/o lady with h/o HTN, HLP, recent stroke ( in , at [facility] ) , DM who presented with AMS and was found to have a UTI 1- Complicated UTI: - cont keflex day 5 of abx ( 05/13) 2- AMS , Metabolic encephalopathy due to infection . now at base line . - cont secondary prophylaxis for stroke , asa , lipitor 3- ESTELLA :at base line base line ( cr 1.4-1.7) 4-HTN urgency,BP improved on toprol, norvasc and increased dose of lisinopril if more BP control is needed , will increase toprol to 100 5- DVT PX dispo: await for rehab placement for a safe dc =
[2016-05-28] MEDS ORDERED: METOPROLOL SUCCINATE 25 MG TAB.SR.24H (FP) PO ONE (16:24)
[2016-05-28] MEDS: GABAPENTIN 300 MG CAPSULE (FP) PO SCH (21:41)
[2016-05-28] MEDS: ATORVASTATIN CA 80 MG TABLET (FP) PO SCH (21:41)
[2016-05-28] MEDS ORDERED: ZOLPIDEM TARTRATE 5 MG TABLET PO ONE (22:00)
[2016-05-29] MEDS: DOCUSATE SODIUM 100 MG CAPSULE (FP) PO SCH ×3 (06:06→21:25)
[2016-05-29] MEDS: INSULIN SLIDING SCALE (NOVOLOG) 1 VIAL SQ SCH ×4 (06:06→21:25)
[2016-05-29] MEDS: HEPARIN NA (PORCINE) 5,000 UNITS/ML 1ML VIAL SQ SCH ×2 (09:28→21:25)
[2016-05-29] MEDS: ASPIRIN 81 MG CHEWABLE TABLETS PO SCH (09:28)
[2016-05-29] MEDS: LISINOPRIL 20 MG TABLET (FP) PO SCH (09:29)
[2016-05-29] MEDS: amLODIPine BESYLATE 10 MG TABLET (FP) PO SCH (09:29)
[2016-05-29] MEDS: METOPROLOL SUCCINATE 100 MG TAB.SR.24H (FP) PO SCH (09:29)
[2016-05-29] MEDS: PANTOPRAZOLE 20 MG TABLET (FP) PO SCH ×2 (09:29→21:26)
[2016-05-29] MEDS: CEPHALEXIN MONOHYDRATE 500 MG CAPSULE (UD) PO SCH ×2 (09:29→21:25)
[2016-05-29] MEDS: POLYETHYLENE GLYCOL 3350 119 GM BTL PO SCH (09:30)
--- NOTE | 2016-05-29 15:34 | PN ---
Progress Note (short form) - Note Progress Note: Subjective: no fever or chills, no complaints today Objective: Vital Signs: Last Vital Signs Temp Pulse Resp BP Pulse Ox 98.1 F 65 18 148/82 100 05/29/16 14:49 05/29/16 14:49 05/29/16 14:49 05/29/16 14:49 05/29/16 09:00 Laboratory Results - last 24 hr 05/28/16 05/28/16 05/29/16 17:09 21:38 06:02 POC Glucometer 174 185 156 05/29/16 11:30 POC Glucometer 172 Physical Exam: NAd , awake , alert and oriented x3 CV: RRR Lungs: CTAb Ext: no edema Neuro: EOMI, round equal pupils , reactive to light , no facial droop, tongue at mid line , uvula at mid line , nl facial sensation . Strength 5/5 in upper and lower ext proximally and distally . reflexes 2+ biceps and 1+ knee jerk b/l . ASSESSMENT AND PLAN: 61 y/o lady with h/o HTN, HLP, recent stroke ( in , at [facility] ) , DM who presented with AMS and was found to have a UTI 1- Complicated UTI: - keflex day / . 2- AMS , Metabolic encephalopathy due to infection . now at base line . - cont secondary prophylaxis for stroke , asa , lipitor 3- ESTELLA :at base line base line ( cr 1.4-1.7) 4-uncontrolled HTN:BP is better this am . cont current regimen toprol, lisinopril, and norvasc will adjust if needed 5- DVT PX dispo: await for rehab placement for a safe dc Visit type - Emergency Visit Emergency Visit: Yes ED Registration Date: 05/26/16 Care time: The patient presented to the Emergency Department on the above date and was hospitalized for further evaluation of their emergent condition. - New Patient This patient is new to me today: No - Critical Care Critical Care patient: No
[2016-05-29] MEDS ORDERED: LISINOPRIL 20 MG TABLET (FP) PO ONE (18:04)
[2016-05-29] MEDS: ATORVASTATIN CA 80 MG TABLET (FP) PO SCH (21:25)
[2016-05-29] MEDS: GABAPENTIN 300 MG CAPSULE (FP) PO SCH (21:25)
[2016-05-29] MEDS ORDERED: ZOLPIDEM TARTRATE 5 MG TABLET PO ONE (22:00)
[2016-05-30] MEDS: INSULIN SLIDING SCALE (NOVOLOG) 1 VIAL SQ SCH ×4 (06:07→21:30)
[2016-05-30] MEDS: DOCUSATE SODIUM 100 MG CAPSULE (FP) PO SCH ×3 (06:07→21:25)
[2016-05-30 09:02] LABS: CALCIUM 8.9 mg/dL (8.5-10.1); COCKROFT - GAULT 54.417; CREATININE 1.6 mg/dL (0.55-1.02)
[2016-05-30] MEDS: PANTOPRAZOLE 20 MG TABLET (FP) PO SCH ×2 (09:55→21:26)
[2016-05-30] MEDS: METOPROLOL SUCCINATE 100 MG TAB.SR.24H (FP) PO SCH (09:55)
[2016-05-30] MEDS: ASPIRIN 81 MG CHEWABLE TABLETS PO SCH (09:55)
[2016-05-30] MEDS: LISINOPRIL 20 MG TABLET (FP) PO SCH (09:55)
[2016-05-30] MEDS: amLODIPine BESYLATE 10 MG TABLET (FP) PO SCH (09:55)
[2016-05-30] MEDS: POLYETHYLENE GLYCOL 3350 119 GM BTL PO SCH (09:56)
[2016-05-30] MEDS: CEPHALEXIN MONOHYDRATE 500 MG CAPSULE (UD) PO SCH ×2 (09:56→21:25)
[2016-05-30] MEDS: HEPARIN NA (PORCINE) 5,000 UNITS/ML 1ML VIAL SQ SCH ×2 (09:56→21:25)
--- NOTE | 2016-05-30 14:05 | PN ---
Progress Note, EMERGENCY MEDICINE SPECIALIST - Note Progress Note: Pt remembered me well. Although MBS was (-), pt continues to reports to me "choking while eating." This has not been reported to or observed by nursing. Selected Entries 05/28/16 05/28/16 05/29/16 14:07 20:29 11:20 Breakfast 100% 100% 100% Lunch 100% 100% Supper 100% 05/29/16 05/29/16 05/30/16 14:49 18:00 11:29 Breakfast 100% Lunch 100% Supper 100% Reviewed with nursing. Suggest monitoring during dinner for signs of dysphagia. Pt should be oob in chair for all meals.
--- NOTE | 2016-05-30 14:45 | PN ---
Physical Exam: SUBJECTIVE: Patient seen and examined Patient resting in bed NAD. no acute events. afebrile and hemodynamically stable. aaox3. Feels well. Denies weakness or paresthesia. No dysuria. Denies chest pain, sob, cough, flank pain, abd pain, diarrhea. OBJECTIVE: Vital Signs Period Temp Pulse Resp BP Sys/Villarreal Pulse Ox Last 24 Hr 98.1 F-99 F 60-69 18-20 148-178/66-84 99 GENERAL: The patient is awake, alert, and fully oriented, in no acute distress. HEAD: Normal with no signs of trauma. EYES: PERRL, extraocular movements intact, sclera anicteric, conjunctiva clear. No ptosis. ENT: moist mucous membranes. NECK: Trachea midline, full range of motion, supple. Thorax: reproducible chest wall tenderness LUNGS: Breath sounds equal, clear to auscultation bilaterally HEART: Regular rate and rhythm, S1, S2 ABDOMEN: Soft, nontender, nondistended, normoactive bowel sounds, EXTREMITIES: 2+ pulses, warm, well-perfused, no edema. NEUROLOGICAL: Cranial nerves II through XII intact. Normal speech, gait not observed. upper and lower extremities strength 5/5 b/l. brachial reflexes 1+ b/l , patellar reflexes 1+ b/l, no paresthesia PSYCH: Normal mood, normal affect. SKIN: Warm, dry Laboratory Results - last 24 hr 05/29/16 05/29/16 05/30/16 17:18 21:21 05:32 Sodium Potassium Chloride Carbon Dioxide Anion Gap BUN Creatinine POC Glucometer 175 204 156 Random Glucose Calcium 05/30/16 05/30/16 08:10 11:09 Sodium 144 Potassium 4.4 Chloride 110 H Carbon Dioxide 27 Anion Gap 7 L BUN 31 H Creatinine 1.6 H POC Glucometer 235 Random Glucose 148 H Calcium 8.9 Active Medications Generic Name Dose Route Start Last Admin Trade Name Freq PRN Reason Stop Dose Admin Acetaminophen 650 mg 05/25/16 00:06 05/26/16 13:15 Tylenol - PO 650 mg Q4H PRN Administration FEVER OR PAIN Amlodipine Besylate 10 mg 05/25/16 03:45 05/30/16 09:55 Norvasc - PO 10 mg DAILY PATRIC Administration Aspirin 81 mg 05/25/16 10:00 05/30/16 09:55 Asa - PO 81 mg DAILY PATRIC Administration Atorvastatin Calcium 80 mg 05/25/16 22:00 05/29/16 21:25 Lipitor - PO 80 mg HS PATRIC Administration Cephalexin HCl 500 mg 05/28/16 11:00 05/30/16 09:56 Keflex - PO 05/31/16 10:59 500 mg BID PATRIC Administration Docusate Sodium 100 mg 05/25/16 06:00 05/30/16 06:07 Colace - PO 100 mg TID PATRIC Administration Gabapentin 300 mg 05/25/16 22:00 05/29/16 21:25 Neurontin - PO 300 mg HS PATRIC Administration Heparin Sodium (Porcine) 5,000 unit 05/25/16 10:00 05/30/16 09:56 Heparin - SQ 5,000 unit BID PATRIC Administration Insulin Aspart 1 vial 05/25/16 07:00 05/30/16 12:01 Novolog Vial Sliding Scale - SQ 4 units ACHS PATRIC Administration Protocol Lisinopril 40 mg 05/30/16 07:52 05/30/16 09:55 Prinivil PO 40 mg DAILY PATRIC Administration Metoprolol Succinate 100 mg 05/28/16 16:23 05/30/16 09:55 Toprol Xl - PO 100 mg DAILY PATRIC Administration Pantoprazole Sodium 20 mg 05/25/16 22:00 05/30/16 09:55 Protonix - PO 20 mg BID PATRIC Administration Polyethylene Glycol 17 gm 05/25/16 10:00 05/30/16 09:56 Miralax (For Daily Use) - PO 17 gm DAILY PATRIC Administration ASSESSMENT/PLAN: This is a 61 yo F with PMH of DM, HTN, CVA vs tia 2 mo ago that presented with RUE weakness, who presents to ED with altered mental status and UTI. Altered mental status -likley metabolic, in setting of acute UTI and recent TIA/CVA -now at baseline -awaiting insurance authorization for subacute rehab UTI -PO cephalexin (last dose mon night) Constipation, chronic -colace, miralax -known to be associated with UTI NIDDM2 -sliding scale -BGM ACHS -Gabapentin HTN -Norvasc 10mg PO daily, Metoprolol succinate 100mg PO daily -restart Lisinopril 40mg PO daily FEN: no IVF no further labs indicated PPI, scd Diabetic diet Dispo: d/c to rehab Problem List - Problems (1) Diabetes Code(s): E11.9 - TYPE 2 DIABETES MELLITUS WITHOUT COMPLICATIONS Qualifiers: Diabetes mellitus type: type 2 Diabetes mellitus complication status: with hyperglycemia (2) Renal insufficiency Code(s): N28.9 - DISORDER OF KIDNEY AND URETER, UNSPECIFIED (3) UTI (urinary tract infection) Code(s): N39.0 - URINARY TRACT INFECTION, SITE NOT SPECIFIED Qualifiers: Urinary tract infection type: site unspecified Hematuria presence: without hematuria Qualified Code(s): N39.0 - Urinary tract infection, site not specified (4) HBP (high blood pressure) Code(s): I10 - ESSENTIAL (PRIMARY) HYPERTENSION Qualifiers: Hypertension type: essential hypertension Qualified Code(s): I10 - Essential (primary) hypertension Visit type - Emergency Visit Emergency Visit: Yes ED Registration Date: 05/26/16 Care time: The patient presented to the Emergency Department on the above date and was hospitalized for further evaluation of their emergent condition. - New Patient This patient is new to me today: No - Critical Care Critical Care patient: No - Discharge Referral Referred to [facility] Med P.C.: No
--- NOTE | 2016-05-30 15:02 | PN ---
Teaching Attending Note Name of Resident: Miya Morales ATTENDING PHYSICIAN STATEMENT I saw and evaluated the patient. I reviewed the resident's note and discussed the case with the resident. I agree with the resident's findings and plan as documented. SUBJECTIVE: no fever or chills, no HAAS OBJECTIVE: NAd , awake , alert and oriented x3 CV: RRR Lungs: CTAb Ext: no edema ASSESSMENT AND PLAN: 61 y/o lady with h/o HTN, HLP, recent stroke ( in , at [facility] ) , DM who presented with AMS and was found to have a UTI 1- Complicated UTI: - keflex day 08/12 . will dc this evening 2- AMS , Metabolic encephalopathy due to infection . now at base line . - cont secondary prophylaxis for stroke , asa , lipitor 3- uncontrolled HTN: - lisinopril to 40 . - cont toprol and norvasc at current dose 4- ESTELLA :resolved . CR at base line base line ( cr 1.4-1.7) 5- DVT PX dispo: rehab will not be available today . Hopefully will dc tomorrow . D/W CM
[2016-05-30] MEDS ORDERED: hydrALAZINE HCL 50 MG TABLET (FP) PO ONE (18:15)
[2016-05-30] MEDS ORDERED: hydrALAZINE HCL 50 MG TABLET (FP) PO STA (18:15)
[2016-05-30] MEDS ORDERED: INSULIN (NOVOLOG) ASPART 100 UNITS/ML 10ML VIAL ONE (21:09)
[2016-05-30] MEDS ORDERED: PT OWN MED DRAWER 7, Y5N ONE (21:09)
[2016-05-30] MEDS: ATORVASTATIN CA 80 MG TABLET (FP) PO SCH (21:26)
[2016-05-30] MEDS: GABAPENTIN 300 MG CAPSULE (FP) PO SCH (21:26)
[2016-05-31] MEDS: DOCUSATE SODIUM 100 MG CAPSULE (FP) PO SCH ×3 (06:54→22:10)
[2016-05-31] MEDS: INSULIN SLIDING SCALE (NOVOLOG) 1 VIAL SQ SCH ×4 (06:55→22:10)
[2016-05-31] MEDS: LISINOPRIL 20 MG TABLET (FP) PO SCH (10:26)
[2016-05-31] MEDS: ASPIRIN 81 MG CHEWABLE TABLETS PO SCH (10:26)
[2016-05-31] MEDS: hydrALAZINE HCL 25 MG TABLET (FP) PO SCH ×2 (10:26→22:10)
[2016-05-31] MEDS: amLODIPine BESYLATE 10 MG TABLET (FP) PO SCH (10:27)
[2016-05-31] MEDS: METOPROLOL SUCCINATE 100 MG TAB.SR.24H (FP) PO SCH (10:27)
[2016-05-31] MEDS: HEPARIN NA (PORCINE) 5,000 UNITS/ML 1ML VIAL SQ SCH ×2 (10:28→22:10)
[2016-05-31] MEDS: PANTOPRAZOLE 20 MG TABLET (FP) PO SCH ×2 (10:28→22:11)
[2016-05-31] MEDS: POLYETHYLENE GLYCOL 3350 119 GM BTL PO SCH (10:29)
--- NOTE | 2016-05-31 12:29 | DS ---
Physical Exam: SUBJECTIVE: Patient seen and examined Patient resting in bed NAD. no acute events. afebrile and hemodynamically stable. aaox3. Feels well. Denies weakness or paresthesia. dysuria resolved. Denies chest pain, sob, cough, flank pain, abd pain, diarrhea. OBJECTIVE: Vital Signs Period Temp Pulse Resp BP Sys/Villarreal Pulse Ox Last 24 Hr 97.7 F-98.8 F 59-71 18-20 150-190/76-95 97 PHYSICAL EXAM GENERAL: The patient is awake, alert, and fully oriented, in no acute distress. HEAD: Normal with no signs of trauma. EYES: PERRL, extraocular movements intact, sclera anicteric, conjunctiva clear. No ptosis. ENT: moist mucous membranes. NECK: Trachea midline, full range of motion, supple. LUNGS: Breath sounds equal, clear to auscultation bilaterally HEART: Regular rate and rhythm, S1, S2 ABDOMEN: Soft, nontender, nondistended, normoactive bowel sounds, EXTREMITIES: 2+ pulses, warm, well-perfused, no edema. NEUROLOGICAL: Cranial nerves II through XII intact. Normal speech, gait not observed. upper and lower extremities strength 5/5 b/l. brachial reflexes 1+ b/l , patellar reflexes 1+ b/l, no paresthesia PSYCH: Normal mood, normal affect. SKIN: Warm, dry LABS Laboratory Results - last 24 hr 05/30/16 05/30/16 05/31/16 17:32 21:29 06:55 POC Glucometer 157 183 182 05/31/16 12:09 POC Glucometer 200 HOSPITAL COURSE: Date of Admission:05/26/16 Patient is a 61 year old female with PMH of DM, HTN, Possible CVA who presents to ED earlier today with altered mental status. Patient called a cab to take her to her ophthalmology appointment but apparently gave the cabin agent the wrong address. She was noted to be confused and became nonresponsive to questions so 911 was called. at mental baseline in ED but reported dysuria and frequency. Daughter reported that mother's cognition has rapidly declined since she had a CVA 1-2 months ago. She was admitted for Altered mental status due to complicated UTI in diabetic. She was treated with IV rocephin and then PO keflex. she completed abx course. Her new BP meds are Norvasc 10, Metoprolol 100 d, Lisinopril 40 d and Hydralazine 25 BID. Her BP is poorly controlled and needs to be warched closely. She has a normal barium swallow (reported choking) . She was discharged home. Date of Discharge: 05/31/16 Minutes to complete discharge: 69 (na) Discharge Summary Reason For Visit: URINARY TRACT INFECTION,LETHARGY,DIABETES MELLITUS Current Active Problems Diabetes (Acute) Renal insufficiency (Acute) UTI (urinary tract infection) (Acute) Condition: Good - Instructions Diet, Activity, Other Instructions: you were in the hospital because you became confused and disoriented. This was most likely caused by a urinary tract infection that we treated with antibiotic , you do not need any more antibiotic. Please follow up with your family doctor as soon as possible to adjust blood pressure medication. Your new blood pressure medications are lisinopril to 40 mg daily, Metoprolol 100 mg daily, Norvasc 10 mg daily and Hydralazine 25 mg twice a day. Prescriptions were sent to your pharmacy Take laxatives every day Return to hospital if symptoms resume Referrals: Ed Cohen MD [Primary Care Provider] - 1 Week Disposition: INTERMEDIATE FACILITY - Home Medications Comprehensive Discharge Medication List: Ambulatory Orders Aspirin [ASA -] 81 mg PO DAILY #20 tab.chew 01/14/16 Amlodipine Besylate [Norvasc -] 10 mg PO DAILY 05/24/16 Aspirin [ASA -] 81 mg PO DAILY 05/24/16 Atorvastatin Ca [Lipitor] 80 mg PO HS 05/24/16 Gabapentin [Neurontin] 300 mg PO HS 05/24/16 Glipizide 5 mg PO DAILY 05/24/16 Insulin Glargine,Hum.rec.anlog [Lantus (10mL VIAL) -] 20 units SQ HS 05/24/16 Docusate Sodium [Colace -] 100 mg PO TID #90 cap 05/27/16 Hydralazine HCl [Apresoline -] 25 mg PO BID #60 tablet 05/31/16 Lisinopril [Prinivil] 40 mg PO DAILY #30 tablet 05/31/16 Metoprolol Succinate [Toprol XL -] 100 mg PO DAILY #100 tab 05/31/16 Problem List - Problems (1) Diabetes Code(s): E11.9 - TYPE 2 DIABETES MELLITUS WITHOUT COMPLICATIONS Qualifiers: Diabetes mellitus type: type 2 Diabetes mellitus complication status: with hyperglycemia (2) Renal insufficiency Code(s): N28.9 - DISORDER OF KIDNEY AND URETER, UNSPECIFIED (3) UTI (urinary tract infection) Code(s): N39.0 - URINARY TRACT INFECTION, SITE NOT SPECIFIED Qualifiers: Urinary tract infection type: site unspecified Hematuria presence: without hematuria Qualified Code(s): N39.0 - Urinary tract infection, site not specified (4) HBP (high blood pressure) Code(s): I10 - ESSENTIAL (PRIMARY) HYPERTENSION Qualifiers: Hypertension type: essential hypertension Qualified Code(s): I10 - Essential (primary) hypertension This patient is new to me today: No Emergency Visit: Yes ED Registration Date: 05/26/16 Care time: The patient presented to the Emergency Department on the above date and was hospitalized for further evaluation of their emergent condition. Critical Care patient: No - Discharge Referral Referred to [facility] Med P.C.: No
--- NOTE | 2016-05-31 13:41 | PN ---
Teaching Attending Note Name of Resident: Miya Morales ATTENDING PHYSICIAN STATEMENT I saw and evaluated the patient. I reviewed the resident's note and discussed the case with the resident. I agree with the resident's findings and plan as documented. SUBJECTIVE: no fever or chills, has no HAAS or SOB/CP OBJECTIVE: NAd , awake , alert and oriented x3 CV: RRR Lungs: CTAb Ext: no edema ASSESSMENT AND PLAN: 61 y/o lady with h/o HTN, HLP, recent stroke ( in , at [facility] ) , DM who presented with AMS and was found to have a UTI 1- Complicated UTI: - finished a course of abx 2- AMS , Metabolic encephalopathy due to infection . now at base line . - cont secondary prophylaxis for stroke , asa , lipitor 3- uncontrolled HTN: add hydralazine BID cont lisinopril 40 and metoprolol xl 100 cont norvasc 10 4- ESTELLA :resolved . CR at base line base line ( cr 1.4-1.7) home with home PT today
--- NOTE | 2016-05-31 15:05 | PN ---
Progress Note, MAINTENANCE SHOP WELDER - Note Progress Note: Tolerating diet. Nursing observed pt last night with no s/s of dysphagia. Selected Entries 05/30/16 05/30/16 05/30/16 07:10 11:29 14:26 Breakfast 100% Lunch 100% Supper Temperature 98.3 F 97.7 F 05/30/16 05/30/16 05/30/16 17:50 18:00 18:15 Breakfast Lunch Supper 100% Temperature 98.5 F 98.2 F 05/30/16 05/30/16 05/31/16 19:00 21:35 02:09 Breakfast Lunch Supper Temperature 98.2 F 98.7 F 98.2 F 05/31/16 05/31/16 05/31/16 07:41 10:00 12:00 Breakfast Lunch Supper Temperature 98.8 F 98.7 F 98.8 F 05/31/16 12:58 Breakfast Lunch 75% Supper Temperature Seen eating an apple without difficulty. Pt's memory waxes and wanes. Told me " I woke up ready for lunch but I didnt remember i had it already." Pending d/c.
[2016-05-31] MEDS: GABAPENTIN 300 MG CAPSULE (FP) PO SCH (22:10)
[2016-05-31] MEDS: ATORVASTATIN CA 80 MG TABLET (FP) PO SCH (22:10)
[2016-05-31] MEDS: ZOLPIDEM TARTRATE 5 MG TABLET PO PRN (22:11)
[2016-05-31] MEDS ORDERED: INSULIN (NOVOLOG) ASPART 100 UNITS/ML 10ML VIAL ONE (23:08)
[2016-06-01] MEDS: INSULIN SLIDING SCALE (NOVOLOG) 1 VIAL SQ SCH ×4 (06:48→21:05)
[2016-06-01] MEDS: DOCUSATE SODIUM 100 MG CAPSULE (FP) PO SCH ×3 (06:49→21:01)
[2016-06-01] MEDS: LISINOPRIL 20 MG TABLET (FP) PO SCH ×2 (08:44→09:18)
[2016-06-01] MEDS: METOPROLOL SUCCINATE 100 MG TAB.SR.24H (FP) PO SCH ×2 (08:45→09:18)
[2016-06-01] MEDS: ASPIRIN 81 MG CHEWABLE TABLETS PO SCH ×2 (08:46→09:17)
[2016-06-01] MEDS: HEPARIN NA (PORCINE) 5,000 UNITS/ML 1ML VIAL SQ SCH ×2 (08:46→09:17)
[2016-06-01] MEDS: hydrALAZINE HCL 25 MG TABLET (FP) PO SCH ×2 (08:46→09:17)
[2016-06-01] MEDS: PANTOPRAZOLE 20 MG TABLET (FP) PO SCH ×3 (08:46→21:01)
[2016-06-01] MEDS: amLODIPine BESYLATE 10 MG TABLET (FP) PO SCH ×2 (08:46→09:17)
[2016-06-01] MEDS: POLYETHYLENE GLYCOL 3350 119 GM BTL PO SCH ×2 (08:47→09:17)
--- NOTE | 2016-06-01 12:30 | PN ---
Teaching Attending Note Name of Resident: Miya Morales ATTENDING PHYSICIAN STATEMENT I saw and evaluated the patient. I reviewed the resident's note and discussed the case with the resident. I agree with the resident's findings and plan as documented. SUBJECTIVE:currently asymptomatic. denies CP, SOB,fever, chills, blurred vision or HAAS OBJECTIVE: Last Vital Signs Temp Pulse Resp BP Pulse Ox 98.8 F 70 20 184/80 98 06/01/16 06:00 06/01/16 12:21 06/01/16 12:21 06/01/16 12:21 06/01/16 09:00 General NAD CV S1 S2 RRR no murmur/rub/gallop Lungs CTA B/L no wheezing/rales/rhonchi ASSESSMENT AND PLAN: 61 y/o lady with h/o HTN, HLP, recent stroke ( in , at [facility] ) , DM who presented with AMS and was found to have a UTI 1. Acute metabolic encephalopathy- due to complicated UTI. completed abx course this admission. symptoms resolved 2. HTN- uncontrolled. will increase hydralazine to TID dosing. explained needs to be compliant with medications. risks of not being compliant not limited to cardiovascular disease, stroke and kidney disease. explained need to follow up with PMD in 2 days to see if further adjustments in medications are required. verbalized understanding and agreement. 3. ESTELLA- resolved 4. d/c home
[2016-06-01] MEDS ORDERED: hydrALAZINE HCL 25 MG TABLET (FP) PO SCH (14:00)
[2016-06-01] MEDS ORDERED: hydrALAZINE HCL 25 MG TABLET (FP) PO ONE (18:02)
[2016-06-01] MEDS: GABAPENTIN 300 MG CAPSULE (FP) PO SCH (21:01)
[2016-06-01] MEDS: hydrALAZINE HCL 50 MG TABLET (FP) PO SCH (21:01)
[2016-06-01] MEDS: ATORVASTATIN CA 80 MG TABLET (FP) PO SCH (21:01)
--- NOTE | 2016-06-01 21:39 | HOSP ---
Subjective - Review of Symptoms Events since last encounter: BP taken by EMS in bilateral arms is >180 systolic. Pt's discharge was postponed earlier this afternoon due to elevated BP, she was given hydralazine 25mg, increased from an earlier dose for the first time and she improved to 158 systolic. EMS declined to take patient, given resistant HTN and new change in medications will postpone discharge until re-evaluation in the morning. Pt given hydralazine 25mg again at 9pm. Physical Examination Vital Signs: Vital Signs Temperature 98.9 F 06/01/16 20:11 Pulse Rate 72 06/01/16 20:11 Respiratory Rate 18 06/01/16 20:11 Blood Pressure 158/91 06/01/16 20:11 O2 Sat by Pulse Oximetry (%) 98 06/01/16 09:00 Labs: CBC, BMP 05/30/16 08:10 Visit type - Emergency Visit Emergency Visit: No - New Patient This patient is new to me today: No - Critical Care Critical Care patient: No
[2016-06-02] MEDS: ZOLPIDEM TARTRATE 5 MG TABLET PO PRN ×2 (00:52→21:57)
[2016-06-02] MEDS: DOCUSATE SODIUM 100 MG CAPSULE (FP) PO SCH ×3 (05:55→21:57)
[2016-06-02] MEDS: hydrALAZINE HCL 50 MG TABLET (FP) PO SCH ×3 (05:55→21:57)
[2016-06-02] MEDS: INSULIN SLIDING SCALE (NOVOLOG) 1 VIAL SQ SCH ×4 (06:04→21:58)
[2016-06-02] MEDS: amLODIPine BESYLATE 10 MG TABLET (FP) PO SCH ×2 (07:00→10:37)
[2016-06-02] MEDS: ASPIRIN 81 MG CHEWABLE TABLETS PO SCH (10:36)
[2016-06-02] MEDS: POLYETHYLENE GLYCOL 3350 119 GM BTL PO SCH (10:37)
[2016-06-02] MEDS: LISINOPRIL 20 MG TABLET (FP) PO SCH (10:38)
[2016-06-02] MEDS: PANTOPRAZOLE 20 MG TABLET (FP) PO SCH ×2 (10:38→21:57)
[2016-06-02] MEDS: METOPROLOL SUCCINATE 100 MG TAB.SR.24H (FP) PO SCH (10:39)
[2016-06-02] MEDS ORDERED: HYDROCHLOROTHIAZIDE 12.5 MG CAPSULE (FP) PO SCH (12:15)
[2016-06-02] MEDS ORDERED: INSULIN (NOVOLOG) ASPART 100 UNITS/ML 10ML VIAL ONE (12:30)
--- NOTE | 2016-06-02 14:32 | PN ---
Physical Exam: SUBJECTIVE: Patient seen and examined Patient resting in bed NAD. Refractory HTN yesterday despite increase in meds. afebrile and hemodynamically stable. aaox3. Feels well. Denies weakness or paresthesia. dysuria resolved. Denies chest pain, sob, cough, flank pain, abd pain, diarrhea OBJECTIVE: Vital Signs Period Temp Pulse Resp BP Sys/Villarreal Pulse Ox Last 24 Hr 98.3 F-98.9 F 60-84 18-20 154-190/76-100 98-98 GENERAL: The patient is awake, alert, and fully oriented, in no acute distress. HEAD: Normal with no signs of trauma. EYES: PERRL, extraocular movements intact, sclera anicteric, conjunctiva clear. No ptosis. ENT: moist mucous membranes. NECK: Trachea midline, full range of motion, supple. LUNGS: Breath sounds equal, clear to auscultation bilaterally HEART: Regular rate and rhythm, S1, S2 ABDOMEN: Soft, nontender, nondistended, normoactive bowel sounds, EXTREMITIES: 2+ pulses, warm, well-perfused, no edema. NEUROLOGICAL: Cranial nerves II through XII intact. Normal speech, gait not observed. upper and lower extremities strength 5/5 b/l. brachial reflexes 1+ b/l , patellar reflexes 1+ b/l, no paresthesia PSYCH: Normal mood, normal affect. SKIN: Warm, dry Laboratory Results - last 24 hr 06/01/16 06/02/16 06/02/16 21:04 05:51 12:23 POC Glucometer 195 209 202 Active Medications Generic Name Dose Route Start Last Admin Trade Name Freq PRN Reason Stop Dose Admin Acetaminophen 650 mg 05/25/16 00:06 05/26/16 13:15 Tylenol - PO 650 mg Q4H PRN Administration FEVER OR PAIN Amlodipine Besylate 10 mg 05/25/16 03:45 06/02/16 10:37 Norvasc - PO Not Given DAILY PATRIC Aspirin 81 mg 05/25/16 10:00 06/02/16 10:36 Asa - PO 81 mg DAILY PATRIC Administration Atorvastatin Calcium 80 mg 05/25/16 22:00 06/01/16 21:01 Lipitor - PO 80 mg HS PATRIC Administration Docusate Sodium 100 mg 05/25/16 06:00 06/02/16 05:55 Colace - PO 100 mg TID PATRIC Administration Gabapentin 300 mg 05/25/16 22:00 06/01/16 21:01 Neurontin - PO 300 mg HS PATRIC Administration Hydralazine HCl 50 mg 06/01/16 22:00 06/02/16 05:55 Apresoline - PO 50 mg TID PATRIC Administration Hydrochlorothiazide 12.5 mg 06/02/16 12:15 06/02/16 12:32 Hctz - PO 12.5 mg DAILY PATRIC Administration Insulin Aspart 1 vial 05/25/16 07:00 06/02/16 12:32 Novolog Vial Sliding Scale - SQ 4 units ACHS PATRIC Administration Protocol Lisinopril 40 mg 05/30/16 07:52 06/02/16 10:38 Prinivil PO 40 mg DAILY PATRIC Administration Metoprolol Succinate 100 mg 05/28/16 16:23 06/02/16 10:39 Toprol Xl - PO 100 mg DAILY PATRIC Administration Pantoprazole Sodium 20 mg 05/25/16 22:00 06/02/16 10:38 Protonix - PO 20 mg BID PATRIC Administration Polyethylene Glycol 17 gm 05/25/16 10:00 06/02/16 10:37 Miralax (For Daily Use) - PO 17 gm DAILY PATRIC Administration Zolpidem Tartrate 5 mg 05/31/16 21:40 06/02/16 00:52 Ambien - PO 5 mg HS PRN Administration INSOMNIA ASSESSMENT/PLAN: This is a 61 yo F with PMH of DM, HTN, CVA vs tia 2 mo ago that presented with RUE weakness, who presents to ED with altered mental status and UTI. Refractory HTN -Norvasc 10mg PO daily, Metoprolol succinate 100mg PO daily -Lisinopril 40mg PO daily, Hydralazine 50 tid -add HCTZ 12.5 d Altered mental status -resolved -likley due to UTI and recent TIA/CVA UTI -finished abx Constipation, chronic -colace, miralax -known to be associated with UTI NIDDM2 -sliding scale -BGM ACHS -Gabapentin FEN: no IVF no further labs indicated PPI, scd Diabetic diet Dispo: d/c home with VNS Problem List - Problems (1) Diabetes Code(s): E11.9 - TYPE 2 DIABETES MELLITUS WITHOUT COMPLICATIONS Qualifiers: Diabetes mellitus type: type 2 Diabetes mellitus complication status: with hyperglycemia (2) Renal insufficiency Code(s): N28.9 - DISORDER OF KIDNEY AND URETER, UNSPECIFIED (3) UTI (urinary tract infection) Code(s): N39.0 - URINARY TRACT INFECTION, SITE NOT SPECIFIED Qualifiers: Urinary tract infection type: site unspecified Hematuria presence: without hematuria Qualified Code(s): N39.0 - Urinary tract infection, site not specified (4) HBP (high blood pressure) Code(s): I10 - ESSENTIAL (PRIMARY) HYPERTENSION Qualifiers: Hypertension type: essential hypertension Qualified Code(s): I10 - Essential (primary) hypertension Visit type - Emergency Visit Emergency Visit: Yes ED Registration Date: 05/26/16 Care time: The patient presented to the Emergency Department on the above date and was hospitalized for further evaluation of their emergent condition. - New Patient This patient is new to me today: No - Critical Care Critical Care patient: No - Discharge Referral Referred to [facility] Med P.C.: No
--- NOTE | 2016-06-02 15:59 | PN ---
Progress Note, LIBRARY ASSOCIATE - Note Progress Note: Pending d/c. No signs of dysphagia reported or observed. Good appetite. Selected Entries 06/01/16 06/01/16 06/02/16 15:19 17:50 11:00 Breakfast 100% 100% Lunch 100% Supper 100% 06/02/16 15:29 Breakfast Lunch 100% Supper Eating independently chocken, apple, etc.
--- NOTE | 2016-06-02 18:20 | PN ---
Teaching Attending Note Name of Resident: Miya Morales ATTENDING PHYSICIAN STATEMENT I saw and evaluated the patient. I reviewed the resident's note and discussed the case with the resident. I agree with the resident's findings and plan as documented. Patient is comfortable with no acute distress, would like to go home Vital Signs Temperature 98.7 F 06/02/16 15:29 Pulse Rate 71 06/02/16 15:29 Respiratory Rate 18 06/02/16 15:29 Blood Pressure 154/92 06/02/16 15:29 O2 Sat by Pulse Oximetry (%) 98 06/02/16 09:00 CBCD WBC 9.0 K/mm3 (4.0-10.0) 05/25/16 07:45 RBC 3.57 M/mm3 (3.60-5.2) L 05/25/16 07:45 Hgb 10.5 GM/dL (10.7-15.3) L 05/25/16 07:45 Hct 30.4 % (32.4-45.2) L 05/25/16 07:45 MCV 85.1 fl (80-96) 05/25/16 07:45 MCHC 34.4 g/dl (32.0-36.0) 05/25/16 07:45 RDW 13.1 % (11.6-15.6) 05/25/16 07:45 Plt Count 314 K/MM3 (134-434) D 05/25/16 07:45 MPV 8.3 fl (7.5-11.1) 05/25/16 07:45 CMP Sodium 144 mmol/L (136-145) 05/30/16 08:10 Potassium 4.4 mmol/L (3.5-5.1) 05/30/16 08:10 Chloride 110 mmol/L (98-107) H 05/30/16 08:10 Carbon Dioxide 27 mmol/L (21-32) 05/30/16 08:10 Anion Gap 7 (8-16) L 05/30/16 08:10 BUN 31 mg/dL (7-18) H 05/30/16 08:10 Creatinine 1.6 mg/dL (0.55-1.02) H 05/30/16 08:10 Creat Clearance w eGFR 32.88 (>60) 05/25/16 07:45 Random Glucose 148 mg/dL (74-106) H 05/30/16 08:10 Calcium 8.9 mg/dL (8.5-10.1) 05/30/16 08:10 Total Bilirubin 0.1 mg/dL (0.2-1.0) L D 05/25/16 07:45 AST 10 U/L (15-37) L D 05/25/16 07:45 ALT 17 U/L (12-78) D 05/25/16 07:45 Alkaline Phosphatase 84 U/L (45-117) 05/25/16 07:45 Total Protein 5.3 g/dl (6.4-8.2) L 05/25/16 07:45 Albumin 2.1 g/dl (3.4-5.0) L 05/25/16 07:45 CARDIAC ENZYMES Creatine Kinase 79 IU/L (26-192) 05/24/16 17:35 Troponin I < 0.02 ng/ml (0.00-0.05) 05/24/16 17:35 Current Medications Generic Name Dose Route Start Last Admin Trade Name Freq PRN Reason Stop Dose Admin Acetaminophen 650 mg 05/25/16 00:06 05/26/16 13:15 Tylenol - PO 650 mg Q4H PRN Administration FEVER OR PAIN Amlodipine Besylate 10 mg 05/25/16 03:45 06/02/16 10:37 Norvasc - PO Not Given DAILY PATRIC Aspirin 81 mg 05/25/16 10:00 06/02/16 10:36 Asa - PO 81 mg DAILY PATRIC Administration Atorvastatin Calcium 80 mg 05/25/16 22:00 06/01/16 21:01 Lipitor - PO 80 mg HS PATRIC Administration Docusate Sodium 100 mg 05/25/16 06:00 06/02/16 14:32 Colace - PO 100 mg TID PATRIC Administration Gabapentin 300 mg 05/25/16 22:00 06/01/16 21:01 Neurontin - PO 300 mg HS PATRIC Administration Hydralazine HCl 50 mg 06/01/16 22:00 06/02/16 14:32 Apresoline - PO 50 mg TID PATRIC Administration Hydrochlorothiazide 12.5 mg 06/02/16 12:15 06/02/16 12:32 Hctz - PO 12.5 mg DAILY PATRIC Administration Insulin Aspart 1 vial 05/25/16 07:00 06/02/16 17:53 Novolog Vial Sliding Scale - SQ 4 units ACHS PATRIC Administration Protocol Lisinopril 40 mg 05/30/16 07:52 06/02/16 10:38 Prinivil PO 40 mg DAILY PATRIC Administration Metoprolol Succinate 100 mg 05/28/16 16:23 06/02/16 10:39 Toprol Xl - PO 100 mg DAILY PATRIC Administration Pantoprazole Sodium 20 mg 05/25/16 22:00 06/02/16 10:38 Protonix - PO 20 mg BID PATRIC Administration Polyethylene Glycol 17 gm 05/25/16 10:00 06/02/16 10:37 Miralax (For Daily Use) - PO 17 gm DAILY PATRIC Administration Zolpidem Tartrate 5 mg 05/31/16 21:40 06/02/16 00:52 Ambien - PO 5 mg HS PRN Administration INSOMNIA Home Medications Medication Instructions Recorded Aspirin [ASA -] 81 mg PO DAILY #20 tab.chew 01/14/16 Amlodipine Besylate [Norvasc -] 10 mg PO DAILY 05/24/16 Aspirin [ASA -] 81 mg PO DAILY 05/24/16 Atorvastatin Ca [Lipitor] 80 mg PO HS 05/24/16 Gabapentin [Neurontin] 300 mg PO HS 05/24/16 Glipizide 5 mg PO DAILY 05/24/16 Insulin Glargine,Hum.rec.anlog 20 units SQ HS 05/24/16 [Lantus (10mL VIAL) -] Docusate Sodium [Colace -] 100 mg PO TID #90 cap 05/27/16 Lisinopril [Prinivil] 40 mg PO DAILY #30 tablet 05/31/16 Metoprolol Succinate [Toprol XL -] 100 mg PO DAILY #100 tab 05/31/16 Hydralazine HCl [Apresoline -] 50 mg PO TID #90 tablet 06/01/16 Hydrochlorothiazide [Hctz -] 12.5 mg PO DAILY #30 cap 06/02/16 ASSESSMENT AND PLAN: This is a 61 yo F with PMH of DM, HTN, CVA vs tia 2 mo ago that presented with RUE weakness, who presents to ED with altered mental status and UTI. #s/p Hypertensive emergency: On Norvasc 10mg PO daily, Metoprolol succinate 100mg PO daily, Lisinopril 40mg PO daily, Hydralazine 50 tid, added HCTZ 12.5 d Patient needs to follow up with primary MD closely to have better blood pressure control. # s/p Altered mental status resolved likely due to UTI # acute UTI completed abx # Hx of chronic Constipation on colace, miralax continue #NIDDM2 continue home meds Diabetic diet d/c home with VNS
[2016-06-02] MEDS: ATORVASTATIN CA 80 MG TABLET (FP) PO SCH (21:57)
[2016-06-02] MEDS: GABAPENTIN 300 MG CAPSULE (FP) PO SCH (21:57)
[2016-06-03] MEDS: DOCUSATE SODIUM 100 MG CAPSULE (FP) PO SCH ×2 (06:14→14:47)
[2016-06-03] MEDS: hydrALAZINE HCL 50 MG TABLET (FP) PO SCH ×2 (06:14→14:47)
[2016-06-03] MEDS: INSULIN SLIDING SCALE (NOVOLOG) 1 VIAL SQ SCH ×3 (06:22→17:09)
[2016-06-03] MEDS ORDERED: HYDROCHLOROTHIAZIDE 25 MG TABLET (FP) PO SCH (08:46)
[2016-06-03] MEDS: METOPROLOL SUCCINATE 100 MG TAB.SR.24H (FP) PO SCH (09:38)
[2016-06-03] MEDS: amLODIPine BESYLATE 10 MG TABLET (FP) PO SCH (09:38)
[2016-06-03] MEDS: LISINOPRIL 20 MG TABLET (FP) PO SCH (09:38)
[2016-06-03] MEDS: PANTOPRAZOLE 20 MG TABLET (FP) PO SCH (09:38)
[2016-06-03] MEDS: ASPIRIN 81 MG CHEWABLE TABLETS PO SCH (09:38)
[2016-06-03] MEDS ORDERED: traMADol HCL 50 MG TABLET PO ONE (11:15)
[2016-06-03] MEDS: POLYETHYLENE GLYCOL 3350 119 GM BTL PO SCH ×2 (11:24→11:25)
--- NOTE | 2016-06-03 13:05 | DS ---
Physical Exam: SUBJECTIVE: Patient seen and examined Patient resting in bed NAD. HTN controlled. afebrile and hemodynamically stable. aaox3. Feels well. Denies weakness or paresthesia. dysuria resolved. Denies chest pain, sob, cough, flank pain, abd pain, diarrhea OBJECTIVE: Vital Signs Period Temp Pulse Resp BP Sys/Villarreal Pulse Ox Last 24 Hr 98.4 F-98.8 F 70-80 16-20 143-169/71-95 98-100 PHYSICAL EXAM GENERAL: The patient is awake, alert, and fully oriented, in no acute distress. HEAD: Normal with no signs of trauma. EYES: PERRL, extraocular movements intact, sclera anicteric, conjunctiva clear. No ptosis. ENT: moist mucous membranes. NECK: Trachea midline, full range of motion, supple. LUNGS: Breath sounds equal, clear to auscultation bilaterally HEART: Regular rate and rhythm, S1, S2 ABDOMEN: Soft, nontender, nondistended, normoactive bowel sounds, EXTREMITIES: 2+ pulses, warm, well-perfused, no edema. NEUROLOGICAL: Cranial nerves II through XII intact. Normal speech, gait not observed. upper and lower extremities strength 5/5 b/l. brachial reflexes 1+ b/l , patellar reflexes 1+ b/l, no paresthesia PSYCH: Normal mood, normal affect. SKIN: Warm, dry LABS Laboratory Results - last 24 hr 06/02/16 06/02/16 06/03/16 16:54 21:56 06:21 POC Glucometer 208 131 194 06/03/16 11:46 POC Glucometer 236 HOSPITAL COURSE: Date of Admission:05/26/16 Patient is a 61 year old female with PMH of DM, HTN, Possible CVA who presents to ED earlier today with altered mental status. Patient called a cab to take her to her ophthalmology appointment but apparently gave the cable respooler the wrong address. She was noted to be confused and became nonresponsive to questions so 911 was called. at mental baseline in ED but reported dysuria and frequency. Daughter reported that mother's cognition has rapidly declined since she had a CVA 1-2 months ago. She was admitted for Altered mental status due to complicated UTI in diabetic. She was treated with IV rocephin and then PO keflex. she completed abx course. Her new BP meds are Norvasc 10, Metoprolol 100 d, Lisinopril 40 d and Hydralazine 50 TID and HCTZ 25 d. She has a normal barium swallow (reported choking). She was discharged home with VNS. Date of Discharge: 06/03/16 Minutes to complete discharge: 55 (na) Discharge Summary Reason For Visit: URINARY TRACT INFECTION,LETHARGY,DIABETES MELLITUS Current Active Problems Diabetes (Acute) Renal insufficiency (Acute) UTI (urinary tract infection) (Acute) Condition: Good - Instructions Diet, Activity, Other Instructions: you were in the hospital because you became confused and disoriented. This was most likely caused by a urinary tract infection that we treated with antibiotic , you do not need any more antibiotic. Please follow up with your family doctor as soon as possible to adjust blood pressure medication. Your new blood pressure medications are lisinopril to 40 mg daily, Metoprolol 100 mg daily, Norvasc 10 mg daily and Hydralazine 50 mg three times a day, hydrochlorothiazile 25 mg daily. Prescriptions were sent to your pharmacy. Follow up with a [employer] system administrator within a week. Take laxatives every day Return to hospital if symptoms resume Referrals: Ed Cohen MD [Primary Care Provider] - 1 Week Felix Law MD [Staff Physician] - 1 Week Disposition: VNS/HOME HEALTH CARE - Home Medications Comprehensive Discharge Medication List: Ambulatory Orders Aspirin [ASA -] 81 mg PO DAILY #20 tab.chew 01/14/16 Amlodipine Besylate [Norvasc -] 10 mg PO DAILY 05/24/16 Aspirin [ASA -] 81 mg PO DAILY 05/24/16 Atorvastatin Ca [Lipitor] 80 mg PO HS 05/24/16 Gabapentin [Neurontin] 300 mg PO HS 05/24/16 Glipizide 5 mg PO DAILY 05/24/16 Insulin Glargine,Hum.rec.anlog [Lantus (10mL VIAL) -] 20 units SQ HS 05/24/16 Docusate Sodium [Colace -] 100 mg PO TID #90 cap 05/27/16 Lisinopril [Prinivil] 40 mg PO DAILY #30 tablet 05/31/16 Metoprolol Succinate [Toprol XL -] 100 mg PO DAILY #100 tab 05/31/16 Hydralazine HCl [Apresoline -] 50 mg PO TID #90 tablet 06/01/16 Hydrochlorothiazide [Hctz -] 25 mg PO DAILY #30 cap 06/03/16 Problem List - Problems (1) Diabetes Code(s): E11.9 - TYPE 2 DIABETES MELLITUS WITHOUT COMPLICATIONS Qualifiers: Diabetes mellitus type: type 2 Diabetes mellitus complication status: with hyperglycemia (2) Renal insufficiency Code(s): N28.9 - DISORDER OF KIDNEY AND URETER, UNSPECIFIED (3) UTI (urinary tract infection) Code(s): N39.0 - URINARY TRACT INFECTION, SITE NOT SPECIFIED Qualifiers: Urinary tract infection type: site unspecified Hematuria presence: without hematuria Qualified Code(s): N39.0 - Urinary tract infection, site not specified (4) HBP (high blood pressure) Code(s): I10 - ESSENTIAL (PRIMARY) HYPERTENSION Qualifiers: Hypertension type: essential hypertension Qualified Code(s): I10 - Essential (primary) hypertension This patient is new to me today: No Emergency Visit: Yes ED Registration Date: 05/26/16 Care time: The patient presented to the Emergency Department on the above date and was hospitalized for further evaluation of their emergent condition. Critical Care patient: No - Discharge Referral Referred to [facility] Med P.C.: No
[2016-06-03 15:53] VITALS: TEMP 98.7
[2016-06-03 16:24] VITALS: BP 187/87; PULSE 64
--- NOTE | 2016-06-03 16:35 | PN ---
Teaching Attending Note Name of Resident: Miya Morales ATTENDING PHYSICIAN STATEMENT I saw and evaluated the patient. I reviewed the resident's note and discussed the case with the resident. I agree with the resident's findings and plan as documented. Comfortable, better blood pressure control. No nausea or vomiting. Vital Signs Temperature 98.7 F 06/03/16 14:51 Pulse Rate 64 06/03/16 16:23 Respiratory Rate 20 06/03/16 14:51 Blood Pressure 160/90 06/03/16 16:23 O2 Sat by Pulse Oximetry (%) 100 06/03/16 09:50 Home Medications Medication Instructions Recorded Aspirin [ASA -] 81 mg PO DAILY #20 tab.chew 01/14/16 Amlodipine Besylate [Norvasc -] 10 mg PO DAILY 05/24/16 Aspirin [ASA -] 81 mg PO DAILY 05/24/16 Atorvastatin Ca [Lipitor] 80 mg PO HS 05/24/16 Gabapentin [Neurontin] 300 mg PO HS 05/24/16 Glipizide 5 mg PO DAILY 05/24/16 Insulin Glargine,Hum.rec.anlog 20 units SQ HS 05/24/16 [Lantus (10mL VIAL) -] Docusate Sodium [Colace -] 100 mg PO TID #90 cap 05/27/16 Lisinopril [Prinivil] 40 mg PO DAILY #30 tablet 05/31/16 Metoprolol Succinate [Toprol XL -] 100 mg PO DAILY #100 tab 05/31/16 Hydralazine HCl [Apresoline -] 50 mg PO TID #90 tablet 06/01/16 Hydrochlorothiazide [Hctz -] 25 mg PO DAILY #30 cap 06/03/16 ASSESSMENT AND PLAN: This is a 61 yo F with PMH of DM, HTN, CVA vs tia 2 mo ago that presented with RUE weakness, who presents to ED with altered mental status and UTI. #s/p Hypertensive emergency:follow ith manager managed backup services for better control of blood pressure. On Norvasc 10mg PO daily, Metoprolol succinate 100mg PO daily, Lisinopril 40mg PO daily, Hydralazine 50 tid, added HCTZ 12.5 d Patient needs to follow up with primary MD closely to have better blood pressure control. # s/p Altered mental status resolved likely due to UTI # acute UTI completed course of abx # Hx of chronic Constipation on colace, miralax continue #NIDDM2 continue home meds , Diabetic diet d/c home with VNS
== END 2016-06-03 18:58 | disposition home health service (06) | DRG 463 ==
LOC: JER 17:07 → JERBED 23:37 → J5S 05-25 03:02 → OBSVTOIN 05-26 10:00
PROVIDERS: ADMIT Internal Medicine; ATTEND Internal Medicine
DX: N39.0 Urinary tract infection, site not specified (principal); B96.20 Unspecified Escherichia coli [E. coli] as the cause of diseases classified elsewhere; E11.65 Type 2 diabetes mellitus with hyperglycemia; Z79.4 Long term (current) use of insulin; I87.8 Other specified disorders of veins; Z86.73 Personal history of transient ischemic attack (TIA), and cerebral infarction without residual deficits; R30.0 Dysuria; K59.00 Constipation, unspecified; I10 Essential (primary) hypertension; R41.82 Altered mental status, unspecified; N17.9 Acute kidney failure, unspecified; E86.0 Dehydration; G93.41 Metabolic encephalopathy
CPT/HCPCS: 36415; 70450-TC; 71010-TC; 74230-TC; 80048; 80053; 80307; 81003; 81015; 82465; 82550; 83615; 84484; 85025; 85610; 86850; 86900; 86901; 87086; 87186; 92611-GN; 93005; 93010; 97116-GP; 97161-GP; 99285-25; G0378; J1644

== ENCOUNTER 2016-06-13 21:31 | Emergency (ER) | payer SELFPAY ==
[2016-06-13 21:51] VITALS: BMI 31.4
--- NOTE | 2016-06-13 21:59 | PDOC ---
History of Present Illness <Lizzie Grewal - Last Filed: 06/14/16 01:18> <Karolyn Addison - Last Filed: 06/14/16 03:08> - General Chief Complaint: Syncope/Near Syncope Stated Complaint: Syncope/Near Syncope - History of Present Illness Initial Comments: 06/13/16 22:54 Patient is a 61 year old female with significant medical hx of IDDM, HTN, CVA ( two months ago), chronic renal insufficiency and UTI who is presenting to the ED via EMS for an episode of unresponsiveness today. Today the patient was walking in [employer] when she reportedly got stuck and couldnt move. The patient is unable to recall the entire event; according to EMS she had an episode of being unresponsive. EMS also note that the patient's BGM was over 200 at the scene. The patient is a poor historian and does not offer any other complaints. Patient is usually seen at [facility]. The patient has had declining functional baseline status since her CVA two months ago. She lives with her grandson. Patient was seen in the ED on 05/25/16 for AMS. Last month the patient came to the ED for a similar event. At that time, patient was a poor historian and unable to recall what had happened to her as she went to her [employer] appointment. She was found to have a UTI while in the ED. PMD: Dustin Cohen MD (Lizzie Grewal) Past History <Lizzie Grewal - Last Filed: 06/14/16 01:18> - Past Medical History CVA: (stroke SEP 2015) Diabetes: Yes HTN: Yes Hypercholesterolemia: Yes - Immunization History Immunization Up to Date: Yes - Psycho/Social/Smoking Cessation Hx Anxiety: No Suicidal Ideation: No Smoking History: Never smoked Have you smoked in the past 12 months: No Information on smoking cessation initiated: No Hx Alcohol Use: No Drug/Substance Use Hx: No Substance Use Type: None <Karolyn Addison - Last Filed: 06/14/16 03:08> - Past Medical History Allergies/Adverse Reactions: Allergies Allergy/AdvReac Type Severity Reaction Status Date / Time No Known Allergies Allergy Verified 06/13/16 21:46 Home Medications: Ambulatory Orders Amlodipine Besylate [Norvasc -] 10 mg PO DAILY 05/24/16 Aspirin [ASA -] 81 mg PO DAILY 05/24/16 Atorvastatin Ca [Lipitor] 80 mg PO HS 05/24/16 Gabapentin [Neurontin] 300 mg PO HS 05/24/16 Glipizide 5 mg PO DAILY 05/24/16 Insulin Glargine,Hum.rec.anlog [Lantus (10mL VIAL) -] 20 units SQ HS 05/24/16 Docusate Sodium [Colace -] 100 mg PO TID #90 cap 05/27/16 Lisinopril [Prinivil] 40 mg PO DAILY #30 tablet 05/31/16 Metoprolol Succinate [Toprol XL -] 100 mg PO DAILY #100 tab 05/31/16 Hydralazine HCl [Apresoline -] 50 mg PO TID #90 tablet 06/01/16 Hydrochlorothiazide [Hctz -] 25 mg PO DAILY #30 cap 06/03/16 Review of Systems <Lizzie Grewal - Last Filed: 06/14/16 01:18> <Karolyn Addison - Last Filed: 06/14/16 03:08> - Review of Systems Comments:: 06/13/16 22:58 CONSTITUTIONAL: Absent: fever, chills, diaphoresis, generalized weakness, malaise, loss of appetite HEENT: Absent: rhinorrhea, nasal congestion, throat pain, throat swelling, difficulty swallowing, mouth swelling, ear pain, eye pain, visual changes CARDIOVASCULAR: Absent: chest pain, syncope, palpitations, irregular heart rate, lightheadedness , peripheral edema RESPIRATORY: Absent: cough, shortness of breath, dyspnea with exertion, orthopnea, wheezing, stridor, hemoptysis GASTROINTESTINAL: Absent: abdominal pain, abdominal distension, nausea, vomiting, diarrhea, constipation, melena, hematochezia GENITOURINARY: Absent: dysuria, frequency, urgency, hesitancy, hematuria, flank pain, genital pain MUSCULOSKELETAL: Absent: myalgia, arthralgia, joint swelling SKIN: Absent: rash, itching, pallor HEMATOLOGIC/IMMUNOLOGIC: Absent: easy bleeding, easy bruising, lymphadenopathy, frequent infections ENDOCRINE: Absent: unexplained weight gain, unexplained weight loss, heat intolerance, cold intolerance NEUROLOGIC: Present: unresponsive event Absent: headache, focal weakness or paresthesia, dizziness, unsteady gait, seizure, bladder or bowel incontinence. PSYCHIATRIC: Absent: anxiety, depression, suicidal or homicidal ideation, hallucinations (CarminaLanceLizzie) *Physical Exam <Lizzie Grewal - Last Filed: 06/14/16 01:18> <AzaelKarolyn Panchal - Last Filed: 06/14/16 03:08> - Vital Signs Last Vital Signs Temp Pulse Resp BP Pulse Ox 97.2 F L 79 20 176/78 99 06/13/16 21:46 06/13/16 21:46 06/13/16 21:46 06/13/16 21:46 06/13/16 21:46 - Physical Exam Comments: 06/13/16 22:59 GENERAL: Well developed, well nourished. Awake and alert. No acute distress. HEENT: Normocephalic, atraumatic. PERRLA, EOMI. No conjunctival pallor. Sclera are non- icteric. Moist mucous membranes. Oropharynx is clear. NECK: Supple. Full ROM. No JVD. Carotid pulses 2+ and symmetric, without bruits. No thyromegaly. No lymphadenopathy. CARDIOVASCULAR: Regular rate and rhythm. No murmurs, rubs, or gallops. Distal pulses are 2+ and symmetric. PULMONARY: No evidence of respiratory distress. Lungs clear to auscultation bilaterally. No wheezing, rales or rhonchi. ABDOMINAL: Protuberant. Soft. Non-tender. Non-distended. No rebound or guarding. No organomegaly. Normoactive bowel sounds. MUSCULOSKELETAL: Normal range of motion at all joints. No bony deformities or tenderness. No CVA tenderness. EXTREMITIES: No cyanosis. No clubbing. No edema. No calf tenderness. SKIN: Warm and dry. Normal capillary refill. No rashes. No jaundice. NEUROLOGICAL: Alert, awake, appropriate, conversant, answering questions appropriately. Poor historian. No sensory deficits. No pronator drift. No gross neurological deficits. Moving all extremities purposefully. Cranial nerves 2-12 intact. Normal speech. Gait is normal without ataxia. PSYCHIATRIC: Cooperative. Good eye contact. Appropriate mood and affect. (Lizzie Grewal) Heart Score/ECG Review - History History: Slightly suspicious - Electrocardiogram EKG: Normal - Age Age: 45-65 - Risk Factors Risk Factors Heart Score: Yes Hx Hypertension, Yes Hx Diabetes Based on the list above the patient has:: 1-2 risk factors - Troponin Troponin: </= normal limit - Score Heart Score - Total: 2 - ECG Intrepretation Rhythm: Regular Rhythm - [place]: Normal - QRS Poor R Wave Progression: No Q Wave Present: No - ST and T Early Repolarization: No Non Specific ST-T Wave changes: Yes Flattened T Waves: No Prolonged Q-T Interval: No - ECG Impressions Non-specific ST Elevation: No Bradycardia: No Torsades keenan Pointes: No WPW: No <Karolyn Addison - Last Filed: 06/14/16 03:08> ED Treatment Course - LABORATORY CBC & Chemistry Diagram: 06/13/16 22:08 06/13/16 22:08 <Lizzie Grewal - Last Filed: 06/14/16 01:18> - LABORATORY CBC & Chemistry Diagram: 06/13/16 22:08 06/14/16 01:50 <Karolyn Addison - Last Filed: 06/14/16 03:08> - ADDITIONAL ORDERS Additional order review: Laboratory Results 06/14/16 06/13/16 06/13/16 01:50 23:45 22:31 INR Sodium 142 Cancelled Potassium 4.1 Cancelled Chloride 109 H Cancelled Carbon Dioxide 20 L D Cancelled Anion Gap 13 Cancelled BUN 39 H D Cancelled Creatinine 1.6 H Cancelled Creat Clearance w eGFR 32.88 Cancelled Random Glucose 218 H D Cancelled Calcium 9.0 Cancelled Total Bilirubin 0.2 D Cancelled AST 14 L D Cancelled ALT 11 L D Cancelled Alkaline Phosphatase 88 Cancelled Creatine Kinase 86 Troponin I < 0.02 Total Protein 6.1 L Cancelled Albumin 2.7 L D Cancelled Urine Color Yellow Urine Appearance Cloudy Urine pH 5.0 Urine Protein 3+ H Urine Glucose (UA) 1+ H Urine Ketones Negative Urine Blood 1+ H Urine Nitrite Negative Urine Bilirubin Negative Urine Urobilinogen Negative Ur Leukocyte Esterase Trace H D Urine WBC 57 Ur Epithelial Cells Rare Urine Bacteria Many Urine Mucus Rare 06/13/16 06/13/16 22:08 22:08 INR 1.02 Sodium Cancelled Potassium Cancelled Chloride Cancelled Carbon Dioxide Cancelled Anion Gap Cancelled BUN Cancelled Creatinine Cancelled Creat Clearance w eGFR Cancelled Random Glucose Cancelled Calcium Cancelled Total Bilirubin Cancelled AST Cancelled ALT Cancelled Alkaline Phosphatase Cancelled Creatine Kinase Cancelled Troponin I Cancelled Total Protein Cancelled Albumin Cancelled Urine Color Urine Appearance Urine pH Urine Protein Urine Glucose (UA) Urine Ketones Urine Blood Urine Nitrite Urine Bilirubin Urine Urobilinogen Ur Leukocyte Esterase Urine WBC Ur Epithelial Cells Urine Bacteria Urine Mucus 06/13/16 22:08 RBC 3.94 MCV 85.4 MCHC 33.2 RDW 13.4 MPV 8.6 Neutrophils % 77.5 Lymphocytes % 15.4 D Monocytes % 4.3 Eosinophils % 1.9 Basophils % 0.9 - RADIOLOGY Radiology Studies Ordered: Category Date Time Status HEAD CT WITHOUT CONTRAST [CT] Stat CT Scan 06/13/16 22:47 Completed CHEST X-RAY PORTABLE* [RAD] Stat Radiology 06/13/16 21:44 Completed Radiograph Interpretation: 06/14/16 01:18 Chest X-Ray Impression: No significant interval change or acute lung disease is present. Reported By: Simón Tobin MD Head CT Impression: No significant interval change or acute intracranial pathology is identified. Reported By: Simón Tobin md (Lizzie Grewal) Medical Decision Making <Lizzie Grewal - Last Filed: 06/14/16 01:18> <Karolyn Addison - Last Filed: 06/14/16 03:08> - Medical Decision Making 06/14/16 02:20 This 61-year-old female was brought in by ambulance after she had a syncope while shopping. I I noticed patient from a previous admission -This patient had a stroke a few months ago and has had some diminished ability with her daily tasks. She does live with a grandson. -Last month she was admitted for altered mental status. Daughter stated that she has had some increased difficulty with memory and taking care of herself this year -When I asked the patient about the episode today. She said she just "got stuck " NIH Stroke scale is 1. She staes it was May instead of June Otherwise, she had no gross focal neural deficits -SHe denied any headache, no extremity weaknesses, slurred speech, chest pain, nausea, shortness of breath, abdominal pain, fever, chills, or cough Past medical history significant for CVA several months ago, diabetes, hypertension, UTI CAT scan of the head was negative for any acute intracranial pathology Patient was afebrile, she was not hypoxic, normal heart rate 06/14/16 02:30 EKG today was normal sinus rhythm at 72 bpm with minimal criteria for LVH. This is the same as EKG that was done last month. CBC does not show any anemia, WBC is 12 chest x-rays negative for any pneumothorax, effusions or infiltrates When she was admitted May 25. her creatinine was 1.6 and it is the same today -I reviewed her old report and her baseline creatinine according to [facility] ' was 1.3 -glucose was 218 -negative troponin pt does have a UTi and was started on levaquin 06/14/16 02:58 IMP UTI discharge with antibiotics (Karolyn Addison) *DC/Admit/Observation/Transfer <Lizzie Grewal - Last Filed: 06/14/16 01:18> <Karolyn Addison - Last Filed: 06/14/16 03:08> Diagnosis at time of Disposition: UTI (urinary tract infection), Renal insufficiency - Discharge Dispostion Condition at time of disposition: Stable - Referrals Referrals: Ed Cohen MD [Primary Care Provider] - - Patient Instructions Printed Discharge Instructions: DI for Syncope in Adults (Fainting), DI for Urinary Tract Infection (UTI) Additional Instructions: please followup with your regular physician this week take your blood pressure diabetes medications as prescribed 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 (Lizzie Grewal) NIH Stroke Scale - Initial Evaluation Level of consciousness: Alert Ask patient the month and their age: Answers one correctly Ask patient to open & close eyes; make fist and let go: Obeys both correctly Best gaze (horizontal eye movement): Normal Visual field testing: No visual field loss Facial paresis (Show teeth/raise eyebrows/close eyes tight): Normal symmetrical movement Motor Function: Left Arm: Normal Motor Function: Right Arm: Normal (extends arm 90 (or 45) degrees for 10 seconds without drift Motor Function: Left Leg: Normal (extends leg 30 degrees for 5 seconds without drift) Motor Function: Right Leg: Normal (extends leg 30 degrees for 5 seconds without drift) Limb Ataxia: No ataxia Sensory(Use pinprick test arms,legs,trunk,face/side to side): Normal Best language (Describe picture, name items, read sentences): No Aphasia Dysarthria (read several words): Normal articulation Extinction and Inattention: No abnormality - Total Score NIH Stroke Scale Score: 1 <Karolyn Addison - Last Filed: 06/14/16 03:08>
[2016-06-13 22:43] LABS: BASOPHIL 0.9 % (0-2.0); EOSINOPHIL 1.9 % (0-4.5); MCH 28.3 pg (25.7-33.7); MCHC 33.2 g/dl (32.0-36.0); MEAN CELL VOLUME 85.4 fl (80-96); MEAN PLT VOLUME 8.6 fl (7.5-11.1); NEUTROPHILS 77.5 % (42.8-82.8); PLATELET COUNT 363 K/MM3 (134-434); RDW 13.4 % (11.6-15.6); WHITE BLOOD COUNT 12.1 K/mm3 (4.0-10.0)
[2016-06-13 22:58] LABS: URINE APPEARANCE CLOUDY; URINE BILIRUBIN NEGATIVE (NEGATIVE); URINE COLOR YELLOW; URINE GLUCOSE (UA) 1+ (NEGATIVE); URINE KETONE NEGATIVE (NEGATIVE); URINE NITRITE NEGATIVE (NEGATIVE); URINE UROBILINOGEN NEGATIVE E.U./dl (0.2-1.0)
[2016-06-13 23:02] LABS: INR 1.02 (0.82-1.09); PROTHROMBIN TIME (PATIENT) 11.2 SEC (9.98-11.88)
[2016-06-13 23:03] LABS: URINE BLOOD 1+ (NEGATIVE); URINE LEUK ESTERASE TRACE (NEGATIVE); URINE PROTEIN 3+ (NEGATIVE)
[2016-06-13 23:06] LABS: URINE BACTERIA MANY /hpf (NONE SEEN); URINE MUCUS RARE; URINE WBC 57 /hpf (3-5)
[2016-06-14 02:26] LABS: ALBUMIN 2.7 g/dl (3.4-5.0); BILIRUBIN,TOTAL 0.2 mg/dL (0.2-1.0); CO2 20 mmol/L (21-32); CREATININE 1.6 mg/dL (0.55-1.02); GLUCOSE,RANDOM 218 mg/dL (74-106); SGPT/ALT 11 U/L (12-78); TOT PROT 6.1 g/dl (6.4-8.2)
[2016-06-14 02:28] LABS: ALK PHOS 88 U/L (45-117); TROPONIN I < 0.02 ng/ml (0.00-0.05)
[2016-06-14 02:35] LABS: ANION GAP 13 (8-16)
[2016-06-14 02:36] LABS: SGOT/AST 14 U/L (15-37)
[2016-06-14] MEDS ORDERED: LEVOFLOXACIN 250 MG TABLET (FP) PO ONE (02:45)
[2016-06-14] MEDS ORDERED: LEVOFLOXACIN 250 MG TABLET (FP) ONE (02:46)
[2016-06-14] MEDS ORDERED: LEVOFLOXACIN 500 MG TABLET (FP) ONE (02:46)
[2016-06-14] MEDS ORDERED: hydrALAZINE HCL 25 MG TABLET (FP) ONE (05:12)
[2016-06-14] MEDS ORDERED: hydrALAZINE HCL 50 MG TABLET (FP) PO ONE (05:12)
[2016-06-14] MEDS ORDERED: LEVOFLOXACIN 750 MG TABLET PO SCH (10:00)
--- NOTE | 2016-06-14 11:04 | EKG ---
Test Reason : Blood Pressure : / mmHG Vent. Rate : 072 BPM Atrial Rate : 072 BPM P-R Int : 132 ms QRS Dur : 082 ms QT Int : 380 ms P-R-T Axes : 041 -21 008 degrees QTc Int : 416 ms NORMAL SINUS RHYTHM MINIMAL VOLTAGE CRITERIA FOR LVH, MAY BE NORMAL VARIANT NONSPECIFIC T WAVE ABNORMALITY ABNORMAL ECG WHEN COMPARED WITH ECG OF 24-MAY-2016 17:27, NO SIGNIFICANT CHANGE WAS FOUND CLINICAL CORRELATION IS RECOMMENDED Confirmed by DAYANNA FERNANDO MD ([id number]) on 06/14/2016 11:04:11 AM Referred By: Confirmed By:DAYANNA FERNANDO MD
[2016-06-14 12:37] LABS: URINE HYALINE CAST 13 /lpf
[2016-06-14 12:42] LABS: URINE RBC 2 /hpf (0-3)
[2016-06-14 13:37] VITALS: BP 163/100; PULSE 65; TEMP 97.7
== END 2016-06-14 13:38 | disposition home or self-care (01) ==
LOC: JER 21:31
DX: N39.0 Urinary tract infection, site not specified (principal); N18.9 Chronic kidney disease, unspecified; I10 Essential (primary) hypertension; E11.9 Type 2 diabetes mellitus without complications; Z79.4 Long term (current) use of insulin; E78.00 Pure hypercholesterolemia, unspecified; Z86.73 Personal history of transient ischemic attack (TIA), and cerebral infarction without residual deficits
CPT/HCPCS: 36415; 70450-TC; 71010-TC; 80053; 81003; 81015; 82550; 84484; 85025; 85610; 87086; 87186; 93005; 93010; 99285-25